=== PATIENT | male | born 2000 ===

== ENCOUNTER 2023-08-19 09:58 | Outpatient (AMB) | payer BC, SELFPAY ==
--- NOTE | 2023-08-19 09:58 | MHC.OFFVIS ---
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 Pt reports forgetting, struggling remember things, difficulty retaining new information, or processing the information. And his memory has has been gradually worsened. Mother states that patient had learning difficulties during his younger years. He had difficulty in Arabic and math, but not diagnosed with dyslexia. He was diagnosed with ADD and he was evaluated by fireworks display specialist and was verbally diagnosed with high-functioning autism. 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 He has difficulty concentrating and remembering the task. He can't remember what his father asked him to do in 20 sec. He states that he tried several medications for ADD, can't remember what he tried, but they had side effect; can't control himself and severe dry mouth. He is not on any medication for ADD now. Pt also reports hx of multiple concussion. He had one concussion in his middle school, he was playing soccer, and had 2 more concussions when he was in high school. Pt reports headache, frontal pounding headache. It usually mild to moderate and managed well with caffeine, but it can be very intense occasionally. Pt has insomnia, difficulty falling asleep and staying sleep. He takes trazodone 50 mg, his usual sleep hours 5 hrs, but wakes up frequently in the middle of the night. He goes to bed 11 pm, listening soft music also to promote sleep. His work hours vary, but mostly 8 am-5 pm. His father has sleep apnea. He may snores, not sure. He has non refreshing sleep and feels always tired. PFSH Family History (Updated 08/19/23 @ 10:11 by Jo Guzmán CMA) Father Migraines HTN (hypertension) Mother Migraines Rheumatoid arthritis Sister Acid reflux Social History (Updated 08/19/23 @ 10:12 by Jo Guzmán CMA) Household Members: Other Household Members Other:: Grandmother Housing: House Alcohol intake: current Comment: rarely Patient Tobacco Use Status: Never used Tobacco Review of Systems Const All systems reviewed & are unremarkable except as noted in HPI and below ENT Reports Normal hearing present Neuro Reports Normal hearing present Physical Exam Vital Signs: Last Vital Signs Pulse 76 08/19/23 10:03 Resp 16 08/19/23 10:03 BP 132/72 08/19/23 10:03 Pulse Ox 99 08/19/23 10:03 Oxygen Delivery Method Room Air 08/19/23 10:03 BMI result Body Mass Index 27.7 Const General: comfortable Nutritional Appearance: overweight Orientation/consciousness: patient oriented x3 HEENT Head: Yes normocephalic Neck Neck: Yes full ROM and Yes supple Resp Effort & Inspection: normal respiratory effort and able to speak in complete sentences Neuro General: patient oriented x3, gait normal and moves all extremities Cranial nerves: Yes Bilaterally intact EOM present, Yes Normal facial strength present, Yes Midline tongue present, Yes Symmetric palate elevation present, Yes Normal hearing present, Yes Ability to bilaterally rotate head present and Yes Ability to bilaterally elevate shoulders present Cognition (Neuro): normal cognition Gait exam (Neuro): Normal gait present Motor exam (neuro): 5/5 motor strength present throughout, Pronator motor function not present and no tremor noted Coordination: [id number] test normal and [id number] test normal Psych Appearance: grossly normal Mental Status: mental status grossly normal Speech and movement: Normal speech and movement present and Clear speech present Affect: normal affect Attitude: cooperative Orientation What is the (year) (season) (date) (day) (month)?: year, season, date, day and month Where are we (state) (county) (town or city) (hospital) (floor)?: state, county, town or city, hospital/clinic and floor Registration Name of 3 unrelated objects clearly and slowly, then ask patient to repeat all 3 of them. (1st repeat determines score. Make sure they can repeat all three): object 1, object 2 and object 3 Attention & Calculation (CHOOSE ONE) Ask pt to begin with 100 & count backward by 7. Stop after 5 repeats. If pt cannot ask them to spell the word WORLD backward.: 93, 86, 79, 72 and 65 Spell WORLD backwards (DLROW): 5 letters Recall Ask patient to repeat the 3 items from question #3.: object 1, object 2 and object 3 Language Show patient a wristwatch & ask what it is. Repeat for pencil.: watch and pencil Ask the patient to repeat the phrase 'No ifs, ands, or buts' after you.: correct Ask the patient to 'take a piece of paper with their right hand' 'fold paper in half' 'place paper on floor': take paper in right hand, fold paper in half and place paper on floor Print the sentence 'CLOSE YOUR EYES' on a piece. If patient actually closes eyes then score.: followed written direction Give patient a blank piece of paper & ask to write a sentence. Score if it contains a noun & verb.: sentence contains subject and verb Ask patient to copy figure of intersecting pentagons exactly. Score if all 10 angles & 2 intersects are included.: all 10 angles present & 2 are intersected Score Score: 35 Assessment & Plan Assessment & Plan (1) Headache: Code(s): R51.9 - Headache, unspecified (2) Difficulty sleeping: Code(s): G47.9 - Sleep disorder, unspecified (3) Daytime sleepiness: Code(s): R40.0 - Somnolence (4) Snoring: Code(s): R06.83 - Snoring (5) Memory deficit: Code(s): R41.3 - Other amnesia Plan Pt's memory deficit is more likely learning deficit not neurological problem. Advised patient to undergo brain MRI to assess headache and multiple concussion. Advised patient to undergo home sleep study to assess sleep apnea. Will f/u with patient after the sleep study for appropriate treatment options. Orders: Orders RT home sleep study 08/19/23 G47.9 - Sleep disorder, unspecified, R06.83 - Snoring, R40.0 - Somnolence, R41.3 - Other amnesia, R51.9 - Headache, unspecified MR head/brain wo con 08/19/23 R41.3 - Other amnesia, R51.9 - Headache, unspecified, Z87.820 - Personal history of traumatic brain injury Coding Level of Care Code New Pt Level 4 (23911) Diagnoses Headache R51.9 Difficulty sleeping G47.9 Daytime sleepiness R40.0 Snoring R06.83 Memory deficit R41.3
[2023-08-19 10:03] VITALS: BP 132/72; PULSE 76; RESP 16; O2SAT 99; BMI 27.7
== END 2023-08-19 11:13 | disposition home or self-care (01) ==
PROVIDERS: PCP Pediatrics; Visit Provider Nurse Practitioner Family
DX: R51.9 Headache, unspecified (principal); G47.9 Sleep disorder, unspecified; R40.0 Somnolence; R06.83 Snoring; R41.3 Other amnesia
CPT/HCPCS: 99204

== ENCOUNTER → 2023-08-19 09:58 | Outpatient (BNVA) | payer BC, SELFPAY | PROVIDERS: PCP Pediatrics; Visit Provider Nurse Practitioner Family ==

== ENCOUNTER → 2023-10-06 13:52 | Outpatient (REF) | payer BC, SELFPAY | LOC: HO.SL 13:52 | PROVIDERS: PCP Hospitalist; Visit Provider Nurse Practitioner Family | DX: G47.9 Sleep disorder, unspecified (principal); R06.83 Snoring; R40.0 Somnolence; R41.3 Other amnesia | CPT/HCPCS: 95806 ==

== ENCOUNTER → 2023-10-06 14:10 | Outpatient (BNV) | payer BC, SELFPAY | PROVIDERS: PCP Hospitalist; Visit Provider Psychiatry & Neurology Neurology | DX: R06.83 Snoring (principal) | CPT/HCPCS: 95806 ==

== ENCOUNTER 2023-10-13 08:47 | Outpatient (REF) | payer BC, SELFPAY ==
--- NOTE | ~2023-10-13 | MR_ITS ---
EXAMINATION: MR BRAIN WITHOUT CONTRAST CLINICAL INFORMATION: Memory issues. History of concussions at a younger age. Headaches. COMPARISON: None. TECHNIQUE: Multiplanar, multisequence imaging of the brain was performed without contrast. FINDINGS: No diffusion abnormalities are identified to suggest an acute or subacute infarct. The ventricles are normal in size. No mass effect or midline shift is seen. No brain parenchymal signal abnormality is noted. No extra-axial fluid collections are seen. The brainstem and cerebellum are normal. The gradient refocused acquisition demonstrates no pathologic magnetic susceptibility artifact to indicate underlying acute or chronic blood products. The craniovertebral junction, marrow signal, and midline structures are normal. The major intracranial flow voids at the level of the jena of Yi are preserved. The dural venous sinus flow voids are maintained. The mastoid air cells and paranasal sinuses are well aerated. MR/MR head/brain wo con IMPRESSION: No acute process. Normal MRI of the brain.
== END 2023-10-13 08:48 | disposition home or self-care (01) ==
LOC: HO.MRI 08:47
PROVIDERS: PCP Hospitalist; Visit Provider Nurse Practitioner Family
DX: R41.3 Other amnesia (principal); R51.9 Headache, unspecified; Z87.820 Personal history of traumatic brain injury
CPT/HCPCS: 70551

== ENCOUNTER 2023-12-23 08:06 | Outpatient (AMB) | payer BC, SELFPAY ==
--- NOTE | 2023-12-23 08:11 | A.OFFVIS_ITS ---
Intake Vital Signs 12/23/23 08:13 Height 5 ft 7 in Weight 175 lb 8 oz BMI 27.5 BP 115/70 Blood Pressure Location Rt brachial Pulse 78 Pulse Source Pulse Oximeter Pulse Oximetry (%) 98 Oxygen Delivery Method Room Air Intake Visit Reasons: 4 mo f/u - Memory Disturbance - LVM w/address Intake Note: Patient presents for 4 months F/U. Allergies No Known Allergies Allergy (Verified 12/23/23 08:13) HPI HPI Comments History of Present Illness Details 23 y/o male patient presents with his mo ther for follow up visit for memory problem. Pt reports forgetting, struggling remember things, difficulty retaining new information, or processing the information. Pt states that his memory is about the same since the last visit. No improvement. Pt's history- Patient had learning difficulties during his younger years. He had difficulty in Cambodian and math, but not diagnosed with dyslexia. He was diagnosed with ADD and he was evaluated by marketing graphics specialist and was verbally diagnosed with high-functioning autism. 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 He has difficulty concentrating and remembering the task. He can't remember what his father asked him to do in 20 sec. He states that he tried several medications for ADD, can't remember what he tried, but they had side effect; can't control himself and severe dry mouth. He is not on any medication for ADD now. Pt also reports hx of multiple concussion. He had one concussion in his middle school, he was playing soccer, and had 2 more concussions when he was in high school. Brain MRI report reviewed, normal brain MRI. Pt reports headache, frontal pounding headache. It usually mild to moderate and managed well with caffeine, but it can be very intense occasionally. Pt has insomnia, difficulty falling asleep and staying sleep. He takes trazodone 50 mg, his usual sleep hours 5 hrs, but wakes up frequently in the middle of the night. He goes to bed 11 pm, listening soft music also to promote sleep. His work hours vary, but mostly 8 am-5 pm. His father has sleep apnea. He may snores, not sure. He has non refreshing sleep and feels always tired. The home sleep study result was normal, but patient states that he did not sleep during the sleep study, keep waking up, mostly stay up. [facility] Family History Father Migraines HTN (hypertension) Mother Migraines Rheumatoid arthritis Sister Acid reflux Social History Household Members: Other Household Members Other:: Grandmother Housing: House Alcohol intake: current Comment: rarely Patient Tobacco Use Status: Never used Tobacco Review of Systems Const All systems reviewed & are unremarkable except as noted in HPI and below ENT Reports Normal hearing present Neuro Reports Normal hearing present Physical Exam Vital Signs: Last Vital Signs Pulse 78 12/23/23 08:13 BP 115/70 12/23/23 08:13 Pulse Ox 98 12/23/23 08:13 Oxygen Delivery Method Room Air 12/23/23 08:13 BMI result Body Mass Index 27.5 Const General: comfortable Nutritional Appearance: overweight Orientation/consciousness: patient oriented x3 HEENT Head: Yes normocephalic Neck Neck: Yes full ROM and Yes supple Resp Effort & Inspection: normal respiratory effort and able to speak in complete sentences Neuro General: patient oriented x3, gait normal and moves all extremities Cranial nerves: Yes Bilaterally intact EOM present, Yes Normal facial strength present, Yes Midline tongue present, Yes Symmetric palate elevation present, Yes Normal hearing present, Yes Ability to bilaterally rotate head present and Yes Ability to bilaterally elevate shoulders present Cognition (Neuro): normal cognition Gait exam (Neuro): Normal gait present Motor exam (neuro): 5/5 motor strength present throughout, Pronator motor function not present and no tremor noted Coordination: arejkc-im-eacc test normal and rpyz-iy-[id number] test normal Psych Appearance: grossly normal Mental Status: mental status grossly normal Speech and movement: Normal speech and movement present and Clear speech present Affect: normal affect Attitude: cooperative Assessment & Plan Assessment & Plan (1) Headache: Code(s): R51.9 - Headache, unspecified (2) Difficulty sleeping: Code(s): G47.9 - Sleep disorder, unspecified (3) Daytime sleepiness: Code(s): R40.0 - Somnolence (4) Snoring: Code(s): R06.83 - Snoring (5) Memory deficit: Code(s): R41.3 - Other amnesia Plan Pt's memory deficit is more likely learning deficit not neurological problem. Advised patient to undergo in lab sleep study to assess sleep apnea. Will f/u with patient after the sleep study for appropriate treatment options. Advised patient to try magnesium 400 mg qHS, and vitamin B2 400 mg qdaily for headache prevention. Orders: Orders RT PSG in-lab sleep study Today R06.83 - Snoring, R40.0 - Somnolence, R51.9 - Headache, unspecified Medications: New magnesium oxide 400 mg PO DAILY 30 days 30 tabs 6RF riboflavin (vitamin B2) 400 mg PO DAILY 30 days 30 tabs 6RF Coding Level of Care Code Est Pt Level 4 (98629) Diagnoses Headache R51.9 Difficulty sleeping G47.9 Daytime sleepiness R40.0 Snoring R06.83 Memory deficit R41.3
[2023-12-23 08:13] VITALS: BP 115/70; PULSE 78; O2SAT 98; BMI 27.5
== END 2023-12-23 08:27 | disposition home or self-care (01) ==
PROVIDERS: PCP Pediatrics; Visit Provider Nurse Practitioner Family
DX: R51.9 Headache, unspecified (principal); G47.9 Sleep disorder, unspecified; R40.0 Somnolence; R06.83 Snoring; R41.3 Other amnesia
CPT/HCPCS: 99214

== ENCOUNTER → 2023-12-23 08:06 | Outpatient (BNVA) | payer BC, SELFPAY | PROVIDERS: PCP Pediatrics; Visit Provider Nurse Practitioner Family ==

== ENCOUNTER → 2024-02-06 20:30 | Outpatient (REF) | payer BC, SELFPAY | LOC: HO.SL 20:30 | PROVIDERS: PCP Hospitalist; Visit Provider Nurse Practitioner Family | DX: R06.83 Snoring (principal); R40.0 Somnolence; R51.9 Headache, unspecified | CPT/HCPCS: 95810 ==

== ENCOUNTER → 2024-02-06 23:11 | Outpatient (BNV) | payer BC, SELFPAY | PROVIDERS: PCP Hospitalist; Visit Provider Psychiatry & Neurology Neurology | DX: R06.83 Snoring (principal) | CPT/HCPCS: 95810 ==

== ENCOUNTER 2024-06-23 14:21 | Outpatient (AMB) | payer BC, SELFPAY ==
[2024-06-23 14:32] VITALS: BMI 29.3
--- NOTE | 2024-06-23 14:32 | MHC.OFFVIS ---
Vital Signs 06/23/24 14:32 Height 5 ft 7 in Weight 187 lb BMI 29.3 Intake Visit Reasons: Follow up Memory Disturbance Intake Note: patient presents for follow up memory Allergies No Known Allergies Allergy (Verified 06/23/24 14:39) Medication List - Last Reconciled 06/23/24 by HALLIE Canales bupropion HCl XL 300 mg PO QAM buspirone 10 mg PO TID hydroxyzine HCl 10 mg PO TID PRN magnesium oxide 400 mg PO DAILY 30 days riboflavin (vitamin B2) 400 mg PO DAILY 30 days trazodone 25 mg PO DAILY HPI Comments Details: 23-yr-old male presents for follow-up visit of sleep difficulties and memory issues. Pt denies any significant interval medical history changes. Since the last visit, pt underwent In-lab PSG which did not show any evidence of sleep apnea or sleep diordered breathing and a small number of PLMS- however pt only slept ~ 2hrs during the study. PSG: AHI 0/hr and REM AHI n/a w/ O2 porter 94% w/ SpO2 < 88% x's 0 min, and average SpO2 97%; Periodic limb movement of sleep (PLMS) index: 6.6/hr; PLMS arousal index: 3.7/hr. Pt was offered to repeat a sleep study w/ premedication but he did not feel that would be accurate. He can still be tired. Prone to wake up 3-4 times a night- takes abouyt 10 minutes to fall back to sleep. His legs can feel restless at night. He is prone to tapping. Pt states his Trazodone was increased but he cannot take it as it makes him too sleepy during the day. He is not sure if he has a h/o anemia- but does have a h/o malnutrition as a child as he was not eating. [facility] Family History Father Migraines HTN (hypertension) Mother Migraines Rheumatoid arthritis Sister Acid reflux Social History Household Members: Other Household Members Other:: Grandmother Housing: House Alcohol intake: current Comment: rarely Patient Tobacco Use Status: Never used Tobacco Physical Exam Vital Signs: BMI result Body Mass Index 29.3 Const General: no acute distress Orientation/consciousness: patient oriented x3 HEENT Other: Mallampati stage Resp Effort & Inspection: normal respiratory effort and able to speak in complete sentences Neuro General: patient oriented x3 Psych Mental Status: mental status grossly normal Speech and movement: Clear speech present Attitude: cooperative Assessment & Plan Assessment & Plan (1) Daytime sleepiness: Code(s): R40.0 - Somnolence Category: Medical (2) Periodic limb movements of sleep: Code(s): G47.61 - Periodic limb movement disorder Category: Medical (3) Memory deficit: Code(s): R41.3 - Other amnesia Category: Medical (4) Headache: Code(s): R51.9 - Headache, unspecified Category: Medical Plan Reviewed sleep studies- results most c/w PLMS. Does sound like pt also has mild RLS s/s. Will request recent labs from PCP- if not completed, will check labs for common causes of RLS/PLMS. I would suggest holding Trazodone- may exacerbate headaches and RLS/PLMS s/s. Take Bupropion XL 1st thing in the morning. Continue Riboflavin and Magnesium for headache. Future consideration- Gabapentin. Coding Level of Care Code Est Pt Level 4 (02220) Diagnoses Daytime sleepiness R40.0 Periodic limb movements of sleep G47.61 Memory deficit R41.3 Headache R51.9
== END 2024-06-23 15:49 | disposition home or self-care (01) ==
PROVIDERS: PCP Pediatrics; Visit Provider Nurse Practitioner Family
DX: R40.0 Somnolence (principal); G47.61 Periodic limb movement disorder; R41.3 Other amnesia; R51.9 Headache, unspecified
CPT/HCPCS: 99214

== ENCOUNTER → 2024-06-23 14:21 | Outpatient (BNVA) | payer BC, SELFPAY | PROVIDERS: PCP Pediatrics; Visit Provider Nurse Practitioner Family | DX: R06.83 Snoring (principal); R40.0 Somnolence; R51.9 Headache, unspecified ==

== ENCOUNTER → 2024-10-11 20:30 | Outpatient (REF) | payer BC, SELFPAY ==
--- OUTSIDE RECORDS SUMMARY | 2024-10-11 21:27 | XMS_ITS | Patient Health Record ---
Author Organization [facility] Address [address] [place] [address] Care Team Providers Care Group Leader Wafer Polishing Name Role Phone CHRISTELLEEmma ABBEY Primary Care Provider [phone] Allergies No Known Allergies Reason For Referral Reason sleep study - Dr Christian duarte Diagnosis 1 Insomnia, unspecifie d (G47.00) Referral Organization [facility] Referring Provider First Name ABBEY Referring Provider Last Name GUL Referring Provider Speciality Internal edicine Referred Provider Specialty Sleep Medici ne General Notes Referral faxed to [facility] at F: [phone] with OV Notes and scheduling forms., Beatriz Powell 12/24/2023 04:06:12 PM > Referral Priority Routine Reason memory loss - Dr Puneet azul- Diagnosis 1 Complaints of memory disturbance (R41.3) Referral Organization [facility] Referring Provider First Name ABBEY Referring Provider Last Name CHRISTELLE Referring Provider Speciality Internal edicine Referred Provider Specialty Neurology General Notes Referral faxed to [facility] at F: [phone]. Please call patient to schedule appointment. Thank you!!!, Beatriz Powell 12/23/2023 04:24:03 PM > Referral Priority Routine Reason EL/MDD Diagnosis 1 Generalized anxiety disorder (F41.1) Diagnosis 2 Major depressive dis order, recurrent, mild (F33.0) Referral Organization [facility] Referring Provider First Name ABBEY Referring Provider Last Name GUL Referring Provider Speciality Internal edicine Referred Provider Specialty Psychiatry General Notes Referral printed out and mailed home to patient with a list of Psychiatry for patient to see which one accepts his insurance.Andre Beatriz 12/24/2023 04:23:48 PM > Referral Priority Routine Reason Evaluation and manag ement Diagnosis 1 Insomnia, unspecifie d (G47.00) Referral Organization [facility] Referring Provider First Name POTTER Referring Provider Last Name GU Referring Provider Speciality Internal edicine Referred Provider Specialty Sleep Medici ne General Notes Referral sent to [facility] Neurology - Office will call patient for scheduling.Rachel Latraya 07/20/2024 09:09:01 AM > Referral Priority Routine Reason Evaluation and manag ement - EEG Diagnosis 1 Complaints of memory disturbance (R41.3) Referral Organization [facility] Referring Provider First Name POTTER Referring Provider Last Name [facility] Referring Provider Speciality Internal edicine Referred Provider Specialty Neurology General Notes Referral sent to [facility] Neurology - Office will call patient for scheduling.Rachel Latraya 07/24/2024 10:32:56 AM > Referral Priority Routine Reason Evaluation and manag ement - sleep study Diagnosis 1 Insomnia, unspecifie d (G47.00) Referral Organization [facility] Referring Provider First Name POTTER Referring Provider Last Name GU Referring Provider Speciality Internal edicine Referred Provider Specialty Neurology General Notes Referral sent to [facility] Neurology - Office will call patient for scheduling.Rachel Latraya 07/24/2024 10:33:45 AM > Referral Priority Routine Reason Evaluation and manag ement - in lab sleep study Diagnosis 1 Complaints of memory disturbance (R41.3) Diagnosis 2 Insomnia, unspecifie d (G47.00) Referral Organization [facility] Referring Provider First Name POTTER Referring Provider Last Name GU Referring Provider Speciality Internal edicine Referred Provider Specialty Sleep Medici ne General Notes Referral sent to [facility] ([address] [place] [address], [address], [place] [address], ) - Office will call patient for scheduling.Rachel Latraya 07/28/2024 02:09:38 PM > Referral Priority Routine Reason in lab sleep study evaluate and management Diagnosis 1 Complaints of memory disturbance (R41.3) Diagnosis 2 Amnesia (R41.3) Diagnosis 3 Insomnia, unspecifie d (G47.00) Referral Organization [facility] Referring Provider First Name POTTER Referring Provider Last Name CHRISTELLEEmma Referring Provider Speciality Internal M edicine Referred Provider Specialty Neurology Referral Priority Routine Medications Medication SIG (Take, Route, Frequency, Duration) Notes Start Date End Date Status traZODone HCl 50 MG 1.5 tablet at bedtim e as needed Orally Once a day for 30 days Active buPROPion HCl ER (XL) 300 MG 1 tablet in the morning Orally Once a day for 90 days Active busPIRone HCl 10 MG 1 tablet Orally Twic e a day for 30 days Active hydrOXYzine HCl 25 MG 1 tablet Orally ev narendra 8 hrs for 30 days Active Problems Problem Type SNOMED Code ICD Code Onset Dates Problem Status W/U Status Risk Notes Problem Mild recurrent major depression (96499012) Major depressive disorder, recurrent, mild (F33.0) Active confirmed Problem Generalized anxiety disorder (55946692) Generalized anxiety disorder (F41.1) Active confirmed Problem Insomnia (103319921) Insomnia, unspecified (G47.00) Active confirmed Problem Amnesia (03178823) Complaints of memory disturbance (R41.3) Active confirmed Problem Amnesia (64392588) Amnesia (R41.3) Active confirmed Vital Signs Heart Rate 61 /min 07/19/2024 Temperature 96.1 degrees Fahrenheit 07/19/2024 Oximetry 98 % 07/19/2024 Blood pressure diastolic 88 mm Hg 07/19/2024 Height 5'7'' in 12/21/2023 Blood pressure systolic 128 mm Hg 07/19/2024 Weight 172.7 lbs 12/21/2023 BMI 27.05 kg/m2 12/21/2023 Encounters Encounter Location Date Provider Diagnosis [facility] [address] [address] 12/21/2023 ABBEY MACKENZIE Generalized anxiety disorder F41.1 ; Encounter for general adult medical examination without abnormal findings Z00.00 ; Major depressive disorder, recurrent, mild F33.0 ; Insomnia, unspecified G47.00 and Complaints of memory disturbance R41.3 [facility] [address] [address] 07/19/2024 ABBEY MACKENZIE Generalized anxiety disorder F41.1 ; Major depressive disorder, recurrent, mild F33.0 ; Insomnia, unspecified G47.00 and Complaints of memory disturbance R41.[address] [place] [address] 11/05/[address] [place] [address] 11/16/[address] [place] [address] 11/30/[address] [place] [address] 01/05/[address] [place] [address] 04/25/[address] [place] [address] 06/12/[address] [place] [address] 07/19/[address] [place] [address] 07/19/[address] [place] [address] 07/28/[address] [place] [address] 08/16/[address] [place] [address] 08/24/2024 [facility] Assessments Encounter Date Diagnosis (ICD Code) Assessment Notes Treatment Notes Treatment Clinical Notes Section Notes 07/19/2024 Generalized anxiety disorder (ICD-10 - F41.1) Mr Rodgers is a 24-year-old gentleman with insomnia, generalized anxiety disorder, major depressive disorder here for review of medications. Plan is as follows: EL/MDD. Mood is stable on current regimen. Continue Trazodone 50 MG 1-1/2 pill, bupropion ER 300 mg daily and Buspirone 10 MG BID. Insomnia. Sleep is stable on hydroxyzine 25 MG. sleep apnea/snoring. He had a sleep study done and he does not remember and he will inform us and there is no record available at this point. He needs to have in-house sleep study for further evaluation. Memory loss and forgetfulness. He recently saw a neurologist and they have ordered some testing. 1 of his physicians which he does not remember also requested EEG and we will refer him to neurology for EEG. Overweight. Advised dietary restrictions and regimental exercise. Goal is to lose 5-6 lbs a month. General health concerns discussed with patient. Scribe services used to formulate this note under HIPAA compliance and under [place] law mandated for scribe services. Patient aware of service. Verbal consent and written consent taken from the patient. Patient understands and verbalizes understanding of the scribes services and all questions answered regarding scribes services. Patient agrees to use of scribes services. 12/21/2023 Generalized anxiety disorder (ICD-10 - F41.1) Mr Rodgers is a 23-year-old gentleman with insomnia, generalized anxiety disorder, major depressive disorder here for annual physical. Plan is as follows: EL/MDD. Mood is stable on current regimen. Continue Trazodone 50 MG and Buspirone 10 MG BID. He does not see a psychiatrist. Referred to Psychiatry. Insomnia. Sleep is stable on hydroxyzine 25 MG. Referred to sleep medicine for sleep study. Memory disturbance. He was having a hard time memorizing and he usually forgets important tasks. It is very unusual for a young patient to have short-term memory loss. They can be a possibility of attention deficit disorder. He also has malocclusion and may have sleep apnea which may be attributing to his memory loss. He had a sleep study and according to the patient it was nonconclusive because he hardly slept for an hour. He is given referral for sleep study and also Referred to neurology for further evaluation. Overweight. Advised dietary restrictions and regimental exercise. Goal is to lose 5-6 lbs a month. Immunizations. Declines vaccinations. General health concerns discussed with patient. Scribe services used to formulate this note under HIPAA compliance and under [place] law mandated for scribe services. Patient aware of service. Verbal consent and written consent taken from the patient. Patient understands and verbalizes understanding of the scribes services and all questions answered regarding scribes services. Patient agrees to use of scribes services. 12/21/2023 Encounter for general adult medical examination without abnormal findings (ICD-10 - Z00.00) Mr Rodgers is a 23-year-old gentleman with insomnia, generalized anxiety disorder, major depressive disorder here for annual physical. Plan is as follows: EL/MDD. Mood is stable on current regimen. Continue Trazodone 50 MG and Buspirone 10 MG BID. He does not see a psychiatrist. Referred to Psychiatry. Insomnia. Sleep is stable on hydroxyzine 25 MG. Referred to sleep medicine for sleep study. Memory disturbance. He was having a hard time memorizing and he usually forgets important tasks. It is very unusual for a young patient to have short-term memory loss. They can be a possibility of attention deficit disorder. He also has malocclusion and may have sleep apnea which may be attributing to his memory loss. He had a sleep study and according to the patient it was nonconclusive because he hardly slept for an hour. He is given referral for sleep study and also Referred to neurology for further evaluation. Overweight. Advised dietary restrictions and regimental exercise. Goal is to lose 5-6 lbs a month. Immunizations. Declines vaccinations. General health concerns discussed with patient. Scribe services used to formulate this note under HIPAA compliance and under [place] law mandated for scribe services. Patient aware of service. Verbal consent and written consent taken from the patient. Patient understands and verbalizes understanding of the scribes services and all questions answered regarding scribes services. Patient agrees to use of scribes services. 07/19/2024 Major depressive disorder, recurrent, mild (ICD-10 - F33.0) Mr Rodgers is a 24-year-old gentleman with insomnia, generalized anxiety disorder, major depressive disorder here for review of medications. Plan is as follows: EL/MDD. Mood is stable on current regimen. Continue Trazodone 50 MG 1-1/2 pill, bupropion ER 300 mg daily and Buspirone 10 MG BID. Insomnia. Sleep is stable on hydroxyzine 25 MG. sleep apnea/snoring. He had a sleep study done and he does not remember and he will inform us and there is no record available at this point. He needs to have in-house sleep study for further evaluation. Memory loss and forgetfulness. He recently saw a neurologist and they have ordered some testing. 1 of his physicians which he does not remember also requested EEG and we will refer him to neurology for EEG. Overweight. Advised dietary restrictions and regimental exercise. Goal is to lose 5-6 lbs a month. General health concerns discussed with patient. Scribe services used to formulate this note under HIPAA compliance and under [place] law mandated for scribe services. Patient aware of service. Verbal consent and written consent taken from the patient. Patient understands and verbalizes understanding of the scribes services and all questions answered regarding scribes services. Patient agrees to use of scribes services. 12/21/2023 Major depressive disorder, recurrent, mild (ICD-10 - F33.0) Mr Rodgers is a 23-year-old gentleman with insomnia, generalized anxiety disorder, major depressive disorder here for annual physical. Plan is as follows: EL/MDD. Mood is stable on current regimen. Continue Trazodone 50 MG and Buspirone 10 MG BID. He does not see a psychiatrist. Referred to Psychiatry. Insomnia. Sleep is stable on hydroxyzine 25 MG. Referred to sleep medicine for sleep study. Memory disturbance. He was having a hard time memorizing and he usually forgets important tasks. It is very unusual for a young patient to have short-term memory loss. They can be a possibility of attention deficit disorder. He also has malocclusion and may have sleep apnea which may be attributing to his memory loss. He had a sleep study and according to the patient it was nonconclusive because he hardly slept for an hour. He is given referral for sleep study and also Referred to neurology for further evaluation. Overweight. Advised dietary restrictions and regimental exercise. Goal is to lose 5-6 lbs a month. Immunizations. Declines vaccinations. General health concerns discussed with patient. Scribe services used to formulate this note under HIPAA compliance and under [place] law mandated for scribe services. Patient aware of service. Verbal consent and written consent taken from the patient. Patient understands and verbalizes understanding of the scribes services and all questions answered regarding scribes services. Patient agrees to use of scribes services. 07/19/2024 Insomnia, unspecified (ICD-10 - G47.00) Mr Rodgers is a 24-year-old gentleman with insomnia, generalized anxiety disorder, major depressive disorder here for review of medications. Plan is as follows: EL/MDD. Mood is stable on current regimen. Continue Trazodone 50 MG 1-1/2 pill, bupropion ER 300 mg daily and Buspirone 10 MG BID. Insomnia. Sleep is stable on hydroxyzine 25 MG. sleep apnea/snoring. He had a sleep study done and he does not remember and he will inform us and there is no record available at this point. He needs to have in-house sleep study for further evaluation. Memory loss and forgetfulness. He recently saw a neurologist and they have ordered some testing. 1 of his physicians which he does not remember also requested EEG and we will refer him to neurology for EEG. Overweight. Advised dietary restrictions and regimental exercise. Goal is to lose 5-6 lbs a month. General health concerns discussed with patient. Scribe services used to formulate this note under HIPAA compliance and under [place] law mandated for scribe services. Patient aware of service. Verbal consent and written consent taken from the patient. Patient understands and verbalizes understanding of the scribes services and all questions answered regarding scribes services. Patient agrees to use of scribes services. 12/21/2023 Insomnia, unspecified (ICD-10 - G47.00) Mr Rodgers is a 23-year-old gentleman with insomnia, generalized anxiety disorder, major depressive disorder here for annual physical. Plan is as follows: EL/MDD. Mood is stable on current regimen. Continue Trazodone 50 MG and Buspirone 10 MG BID. He does not see a psychiatrist. Referred to Psychiatry. Insomnia. Sleep is stable on hydroxyzine 25 MG. Referred to sleep medicine for sleep study. Memory disturbance. He was having a hard time memorizing and he usually forgets important tasks. It is very unusual for a young patient to have short-term memory loss. They can be a possibility of attention deficit disorder. He also has malocclusion and may have sleep apnea which may be attributing to his memory loss. He had a sleep study and according to the patient it was nonconclusive because he hardly slept for an hour. He is given referral for sleep study and also Referred to neurology for further evaluation. Overweight. Advised dietary restrictions and regimental exercise. Goal is to lose 5-6 lbs a month. Immunizations. Declines vaccinations. General health concerns discussed with patient. Scribe services used to formulate this note under HIPAA compliance and under [place] law mandated for scribe services. Patient aware of service. Verbal consent and written consent taken from the patient. Patient understands and verbalizes understanding of the scribes services and all questions answered regarding scribes services. Patient agrees to use of scribes services. 12/21/2023 Complaints of memory disturbance (ICD-10 - R41.3) Mr Rodgers is a 23-year-old gentleman with insomnia, generalized anxiety disorder, major depressive disorder here for annual physical. Plan is as follows: EL/MDD. Mood is stable on current regimen. Continue Trazodone 50 MG and Buspirone 10 MG BID. He does not see a psychiatrist. Referred to Psychiatry. Insomnia. Sleep is stable on hydroxyzine 25 MG. Referred to sleep medicine for sleep study. Memory disturbance. He was having a hard time memorizing and he usually forgets important tasks. It is very unusual for a young patient to have short-term memory loss. They can be a possibility of attention deficit disorder. He also has malocclusion and may have sleep apnea which may be attributing to his memory loss. He had a sleep study and according to the patient it was nonconclusive because he hardly slept for an hour. He is given referral for sleep study and also Referred to neurology for further evaluation. Overweight. Advised dietary restrictions and regimental exercise. Goal is to lose 5-6 lbs a month. Immunizations. Declines vaccinations. General health concerns discussed with patient. Scribe services used to formulate this note under HIPAA compliance and under [place] law mandated for scribe services. Patient aware of service. Verbal consent and written consent taken from the patient. Patient understands and verbalizes understanding of the scribes services and all questions answered regarding scribes services. Patient agrees to use of scribes services. 07/19/2024 Complaints of memory disturbance (ICD-10 - R41.3) Mr Rodgers is a 24-year-old gentleman with insomnia, generalized anxiety disorder, major depressive disorder here for review of medications. Plan is as follows: EL/MDD. Mood is stable on current regimen. Continue Trazodone 50 MG 1-1/2 pill, bupropion ER 300 mg daily and Buspirone 10 MG BID. Insomnia. Sleep is stable on hydroxyzine 25 MG. sleep apnea/snoring. He had a sleep study done and he does not remember and he will inform us and there is no record available at this point. He needs to have in-house sleep study for further evaluation. Memory loss and forgetfulness. He recently saw a neurologist and they have ordered some testing. 1 of his physicians which he does not remember also requested EEG and we will refer him to neurology for EEG. Overweight. Advised dietary restrictions and regimental exercise. Goal is to lose 5-6 lbs a month. General health concerns discussed with patient. Scribe services used to formulate this note under HIPAA compliance and under [place] law mandated for scribe services. Patient aware of service. Verbal consent and written consent taken from the patient. Patient understands and verbalizes understanding of the scribes services and all questions answered regarding scribes services. Patient agrees to use of scribes services. Plan Of Treatment Pending Test Test Name Order Date Electroencephalography (EEG) 07/19/2024 Future Test Test Name Order Date 25OH VITAMIN D 08/13/2023 COMPREHENSIVE METABOLIC PANEL 08/13/2023 HOMOCYSTEINE, URINE 08/13/2023 LIPID PANEL 08/13/2023 METHYLMALONIC ACID, URINE 08/13/2023 TSH 08/13/2023 VITAMIN B12 08/13/2023 Next Appt Details Provider Name:ABBEY MACKENZIE , 10/19/2024 09:00:00 AM, [address] [place] [address], [id number], Insurance Providers Payer Name Payer Address Payer Phone Subscriber Number Group Number Insured Name Patient Relationship to Insured Coverage Start Date Coverage End Date [facility] [address] [place] [address] [id number] Garrett Rodgers Self - patient is the insured Medical (General) History Medical History History ICD Code insomnia Anxiety disorder ADHD Surgical History Surgery Date(Month/Year) fracture left leg sec to sports injury
--- OUTSIDE RECORDS SUMMARY | 2024-10-11 21:27 | XMS_ITS | Encounter Summary ---
Author Organization [facility] Address [address] [place] [address] Phone Care Team Providers Care Boiler House Supervisor Name Role Phone Андрей Vasquez MD Primary Care Provider [phone] Encounter Details Date Type Department Care Team (Late st Contact Info) Description 03/21/2012 Documentation [facility] Medicine [address] [place] [address] Family Medicine, Physician [address] [place], [place] [id number] Social History Tobacco Use Types Packs/Day Years Used Date Smoking Tobacco: Never Assessed Sex and Gender Information Value Date Recorded Sex Assigned at Male 12/27/2020 3:19 PM EDT Legal Sex Male 5:10 PM EDT Gender Identity Male 12/27/2020 3:19 PM EDT Sexual Orientation Straight 07/18/2019 2: 18 PM EST documented as of this encounter Plan of Treatment Not on file documented as of this encounter Visit Diagnoses Not on filedocumented in this encounter Care Teams Boiler House Supervisor Relationship Specialty Start Date End Date Андрей Vasquez MD [address] [place] [id number] PCP - General 04/23/17 03/04/23 documented as of this encounter
--- OUTSIDE RECORDS SUMMARY | 2024-10-11 21:27 | XMS_ITS | Encounter Summary ---
Author Organization [facility] Address [address] [place] [address] Phone Care Team Providers Care Home Economics Expert Name Role Phone Андрей Vasquez MD Primary Care Provider [phone] Encounter Details Date Type Department Care Team (Late st Contact Info) Description 07/04/2013 Documentation [facility] [address] [place] [address] Family Medicine, Physician [address] [place], [place] [phone] Social History Tobacco Use Types Packs/Day Years [...] on filedocumented in this encounter Care Teams Home Economics Expert Relationship Specialty Start Date End Date Андрей Vasquez MD [address] [place] [id number] PCP - General 04/23/17 03/04/23 documented as of this encounter
--- OUTSIDE RECORDS SUMMARY | 2024-10-11 21:28 | XMS_ITS | Encounter Summary ---
Author Organization [facility] Address [address] [place] [address] Phone Care Team Providers Care Stitch Burnisher Name Role Phone Андрей Vasquez MD Primary Care Provider Encounter Details Date Type Department Care Team (Late st Contact Info) Description 10/16/2016 Documentation [facility] Family Medicine [address] [place] [address] Family Medicine, Physician [address] [place], [place] [id number] Social History Tobacco Use Types Packs/Day Years Used Date Smoking Tobacco: Never Comments:Never smoker Sex and Gender Information Value Date Recorded Sex Assigned at Male 12/27/2020 3:19 PM EDT Legal Sex Male 5:10 PM EDT Gender Identity Male 12/27/2020 3:19 PM EDT Sexual Orientation Straight 07/18/2019 2: 18 PM EST documented as of this encounter Plan of Treatment Not on file documented as of this encounter Visit Diagnoses Not on filedocumented in this encounter Care Teams Stitch Burnisher Relationship Specialty Start Date End Date Андрей Vasquez MD [address] [place] [address] [place] [address] PCP - General 04/23/17 03/04/23 documented as of this encounter
--- OUTSIDE RECORDS SUMMARY | 2024-10-11 21:28 | XMS_ITS ---
Author Organization [facility] Address [address] [place] [address] [address] [place] [address] Care Team Providers Care Nailer Operator Name Role Phone AVRIL ABBEY Primary Care Provider [phone] Reason For Referral Reason Evaluation and manag ement - in lab sleep study Diagnosis 1 Complaints of memory disturbance (R41.3) Diagnosis 2 Insomnia, unspecifie d (G47.00) Referral Organization [facility] Referring Provider First Name ABBEY Referring Provider Last Name AVRIL Referring Provider Speciality Internal M edicine Referred Provider Specialty Sleep Medici ne General Notes Referral sent to Bebeto manuel ([address] [place] [address], [address], [place] [address], ) - Office will call patient for scheduling., Saundra Ramos 07/28/2024 02:09:38 PM > Referral Priority Routine REASON FOR VISIT Sleep study referral Encounters Encounter Location Date Provider Diagnosis [address] [address] 07/28/2024 ABBEY MACKENZIE Plan Of Treatment Referrals Referral Date Details 07/28/2024 07/28/2024, Evaluati on and management - in lab sleep study Next Appt Details Provider Name:ABBEY MACKENZIE , 10/19/2024 09:00:00 AM, [address] [place] [address] [address], [place], [address], Progress Notes * Toney MOREAU:2000 (24 yo M)Acc No.[id number]:07/28/2024 Patient:?Garrett MOREAU :2000???Age:24 Y???Sex:Male Address:[address] [place] [address] Horacio RJEILEANDRA BARAJAS [address] Subjective: * Chief Complaints: * ???Sleep study referral * Medical History:? * Surgical History:? * Hospitalization/Major Diagno stic Procedure:? * Medications:? Objective: * Vitals:? * Physical Examination:? Assessment: Plan: * Treatment: * Procedure Codes:? * true * Date:? Generated for Grace malcolm/Carroll/eTransmitting on:?10/11/2024 09:27 PM EST Consultation Request Notes Referral Date Referring Provider Referred Provider Not melissa 07/28/2024 ABBEY MACKENZIE , Evaluation and management - in lab sleep study
--- OUTSIDE RECORDS SUMMARY | 2024-10-11 21:28 | XMS_ITS | Clinical Summary ---
Author Organization [facility] Address [address] [place] [address] Phone Care Team Providers Care Waxer Operator Name Role Phone Unavailable Primary Care Provider Unavailabl e Allergies No known active allergies Medications Spacer/Aero-Holdi ng Chambers (OPTICHAMBER NORMA) misc OPTICHAMBER NORMA; inhale by Inhalation route use c MDI as directed.; 09/21/2016; Active 7 Active Multiple Vitamin (MULTI VITAMIN DAILY PO) Multi Vitamin; 03/17/2016; Active 6 Active PROAIR HFA 108 (90 Base) MCG/ACT inhalerIndication s:Mild persistent asthma without complication INHALE 2 PUFFS EVERY 4 TO 6 HOURS NEEDED 1 Units 8 Active ketoconazole 2 % shampooIndication s:Tinea versicolor APPLY TO AFFECTED AREA EVERY DAY 120 mL 3 1 Active Additional Information Patient not taking.Reported on 10/14/2021 budesonide (Pulmicort Flexhaler) 180 MCG/ACT inhalerIndication s:Mild persistent asthma without complication Inhale 2 puffs 2 (two) times a day. 1 Units 1 Active dexmethylphenidat e XR (Focalin XR) 10 MG 24 hr capsuleIndication s:Attention deficit hyperactivity disorder, predominantly inattentive type Take 1 capsule (10 mg total) by mouth every morning. 30 capsule 2 Active Active Problems Problem Noted Date Diagnosed Date Hyperventilation 05/09/2021 Overview (05/09/2021): Was dehydrated, hot, anxious. Assessment & Plan (05/09/2021 4:17 PM EDT): Fine now. Drink lots in the heat. I can show you relaxation breathing exercises which you can find on line. COVID-19 vaccine dose declined 12/27/2020 Overview (12/27/2020): Wants to look into it further, also refused Carlito Assessment & Plan (10/14/2021 9:21 AM EST): Counseled to get vaccinated to prevent serious illness or even Assessment & Plan (12/27/2020 3:41 PM EDT): I strongly urge you to get the HPV and the Meningitis B vaccine, and the Covid vaccine. Patellar tendonitis of both knees 12/27/2020 Overview (12/27/2020): Or runner's knee, off and on, not bothering him now Assessment & Plan (05/09/2021 4:13 PM EDT): Better now, not doing sports. Assessment & Plan (12/27/2020 3:54 PM EDT): You should not need to wear knee braces. If patellar tendons begin bothering you again, let me know; you should have physical therapy. Benign mole 12/27/2020 Overview (12/27/2020): Raised more of a skin tag, flesh colored with dark brown tip, quite benign looking. Is 3 x 6mm left lower back Assessment & Plan (12/27/2020 3:56 PM EDT): Photo taken, recheck in three months with ADD/asthma check Dandruff 07/18/2019 Overview (07/18/2019): Uses ketoconazole Assessment & Plan (05/09/2021 4:15 PM EDT): Better with ketoconazole every other day. Assessment & Plan (12/27/2020 3:40 PM EDT): Continue use of shampoo. Mild persistent asthma without complication 05/14 Overview (10/14/2021): Was not using/needing controller for A year but having trouble with hot/humid weather. 10/04 not needing albuterol at all now, is playing soccer Assessment & Plan (10/14/2021 9:24 AM EST): Continue the same plan Assessment & Plan (05/09/2021 4:13 PM EDT): Make sure to remember to use your QVAR daily! It is VERY IMPORTANT for you to get the Covid Vaccine.to protect yourself. It protects you in 88% of exposures from getting the new variant; if you do get it, you get a much milder case. Assessment & Plan (03/28/2021 4:44 PM EDT): See asthma plan. Restart a controller: Will start QVAR. Assessment & Plan (12/27/2020 3:39 PM EDT): Use albuterol if needed, if needed more than 4 x in a month, then restart controller. Assessment & Plan (07/19/2019 8:35 AM EST): Doing well, on advair and symbicort, not needing albuterol Assessment & Plan (05/04/2019 9:03 AM EDT): Doing well, does take albuterol before sports, but says is out of shape Assessment & Plan (06/10/2017 10:56 AM EDT): Should not need albuterol at EVERY practice and game, and should not get winded so easily in hot weather, despite normal spirometry. Will start another controller, singulair, keep track of symptoms. Let me know, follow up with ADD Follow up. Attention deficit hyperactivity disorder, predominantly inattentive type Doing well. 1.Eat healthy foods, do not skip meals, avoid too much sugar and ALL ARTIFICIAL FOOD COLORINGS. 2. Get enough sleep, every night. 3. Get at least an hour of fresh air and exercise a day. 4. No more than 2 hours of screen time a day. 5. Maintain a structured schedule every day, with a quiet place to do homework. 6. Create a to do list to keep track of homework. 7. Take medication as ordered. 8. Complete teacher's and parent's Vanderbilts if not done in the last 6 months. 9. Read Addressing ADD Naturally if not read already. 10. Address any learning issues and any emotional problems. 1. Need for vaccination MenACWY-D--Menactra Meningococcal conjugate vaccine IM, IIV4 Preservative Free Quadrivalent Flu Vaccine 0.5ml 2. ADHD (attention deficit hyperactivity disorder) evaluation 3. Foot pain, right X-Ray, foot, right; complete, minimum of three views 4. Encounter for routine child health examination without abnormal findings 5. Encounter for screening for other disorder Brief Behavioral Assessment - Normal (PSC,PHQ9,[place],etc) 6. 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 Assessment & Plan (10/14/2021 9:25 AM EST): Because of side effects, on the dose he was on for years. Will give half the dose. Avoid artificial food colorings, get enough sleep, keep things organized, fish oil may help. Assessment & Plan (05/09/2021 4:14 PM EDT): Take your focalin since you have begun classes. I encourage you to pursue your college education. Assessment & Plan (03/28/2021 4:46 PM EDT): Has not been taking focalin, should restart with school Assessment & Plan (12/27/2020 3:39 PM EDT): Doing well with meds as needed for study. Avoid artificial food colorings. Assessment & Plan (07/19/2019 8:35 AM EST): No problems with attention nor focus, has a good plan for the future, following his own course! Assessment & Plan (05/04/2019 9:03 AM EDT): Doing well. 1.Eat healthy foods, do not skip meals, avoid too much sugar and ALL ARTIFICIAL FOOD COLORINGS. 2. Get enough sleep, every night. 3. Get at least an hour of fresh air and exercise a day. 4. No more than 2 hours of screen time a day. 5. Maintain a structured schedule every day, with a quiet place to do homework. 6. Create a to do list to keep track of homework. 7. Take medication as ordered. 8. Do the adult ADHD questionnaire. . 9. Read Addressing ADD Naturally if not read already. 10. Address any learning issues and any emotional problems. Assessment & Plan (12/02/2018 3:19 PM EDT): Doing very well now, continues on focalin xr 1.Eat healthy foods, do not skip meals, avoid too much sugar and ALL ARTIFICIAL FOOD COLORINGS. 2. Get enough sleep, every night. 3. Get at least an hour of fresh air and exercise a day. 4. No more than 2 hours of screen time a day. 5. Maintain a structured schedule every day, with a quiet place to do homework. 6. Create a to do list to keep track of homework. 7. Take medication as ordered. 8. Complete teacher's and parent's Vanderbilts if not done in the last 6 months. 9. Read Addressing ADD Naturally if not read already. 10. Address any learning issues and any emotional problems. Assessment & Plan (10/07/2017 4:48 PM EST): Doing very well, keep up the good. 1.Eat healthy foods, do not skip meals, avoid too much sugar and ALL ARTIFICIAL FOOD COLORINGS. 2. Get enough sleep, every night. 3. Get at least an hour of fresh air and exercise a day. 4. No more than 2 hours of screen time a day. 5. Maintain a structured schedule every day, with a quiet place to do homework. 6. Create a to do list to keep track of homework. 7. Take medication as ordered. 8. Complete teacher's and parent's Vanderbilts if not done in the last 6 months. 9. Read Addressing ADD Naturally if not read already. 10. Address any learning issues and any emotional problems. Assessment & Plan (06/10/2017 10:54 AM EDT): Doing well. 1.Eat healthy foods, do not skip meals, avoid too much sugar and ALL ARTIFICIAL FOOD COLORINGS. 2. Get enough sleep, every night. 3. Get at least an hour of fresh air and exercise a day. 4. No more than 2 hours of screen time a day. 5. Maintain a structured schedule every day, with a quiet place to do homework. 6. Create a to do list to keep track of homework. 7. Take medication as ordered. 8. Complete teacher's and parent's Vanderbilts if not done in the last 6 months. 9. Read Addressing ADD Naturally if not read already. 10. Address any learning issues and any emotional problems. Resolved Problems Problem Noted Date Diagnosed Date Resolved Date Ankle injury, right, subsequent encounter 08/03/2017 07/14/2018 Assessment & Plan (08/03/2017 3:40 PM EST): Should be healing by now, ?why not. See referral and will recheck xray Learning disability 11/05/2009 12/28/19 21 Overview (05/04/2019): Used to struggle in Portuguese Assessment & Plan (07/18/2019 2:30 PM EST): Now Portuguese is his best subject, is studying Cameroonian Assessment & Plan (05/04/2019 9:04 AM EDT): Had a 504 in high school, will have one in [facility] for extra time on tests Assessment & Plan (12/02/2018 3:18 PM EDT): Has a 504, does well, takes Honors Portuguese, learning Cameroonian Immunizations Name Administration Dates Next Due DTaP 5 12/16/2004, 2,01/05/2001,11/09,2000 H1N1 10/09/2009,08/27/2009 Hep A, ped/adol 12/30/2015,03/14/2015 Hep B, ped/adol 2001,03/31/2001,01/05/2001 Hib (PRP-T) 10/06/2001, 1,2000,08/30 IPV 12/16/2004, 2,2000,08/30 Influenza Split 09/22/2012,07/31/2011,07/15/2010 Influenza, injectable, quadr ivalent, preservative free 07/18/2019,07/14/2018,06/10/2017,08/13,05/26/2014,08/09/2013 Influenza, injectable, trivalent 08/27/2009 MMR 12/16/2004,10/06/2001 Meningococcal Conj (Menactra) MCV4P 06/10/2017,0 12/19/2012 Pneumococcal Conjugate 01/05/2001,2000, Tdap 12/19/2012 Varicella 04/16/2008,10/06/2001 Family History Medical History Relation Name Comments No Known Problems Father Kurt Heart disease (Premature) Maternal Grandfather Hyperlipidemia Maternal Grandfather Rheum arthritis Mother Rena Heart disease (Premature) Paternal Grandfather Hyperlipidemia Paternal Grandfather Allergic rhinitis Sister Hope Relation Name Status Comments Father Kurt Alive Father: Alive a nd well Maternal Grandfather Materna l grandfather: Cancer, prostate Maternal Grandmother Materna l grandmother: Hyperlipidemia, Diabetes mellitus, *Heart Disease Mother Rena Alive Mother: Alive a nd well, Rheumatoid arthritis, Asthma Other Family history of Asthma, Family history of Migraines, Family history of ADD/ADHD, Family history of Diabetes mellitus Paternal Grandfather Paterna l uncle: learning disability Paternal Grandmother Paterna l grandmother: Hyperlipidemia, Diabetes mellitus Sister Hope Alive Sister: Alive a nd well, Strabismus Social History Tobacco Use Types Packs/Day Years Used Date Smoking Tobacco: Never Smokeless Tobacco: Never Comments:Never smoker Alcohol Use Standard Drinks/Week Comments No 0 (1 standard drink = 0.6 oz pur e alcohol) Hunger/Food Answer Date Recorded In the last 12 months, did y ou or your family ever eat less than you felt you should because there wasn't enough money for food? No 12/27/2020 Stable Housing Answer Date Recorded Are you worried that in the next 2 months you may not have stable housing? No 12/27/2020 Transportation Concerns Answer Date Rec orded In the last 12 months, have you or your family ever had to go without healthcare because you didn't have a way to get there? No 12/27/2020 Hazards in Home Answer Date Recorded Think about the place you li ve. Do you have problems with any of the following? Pests (mice or roaches), mold, no/not working smoke detectors, water leaks, no window guards. No 2020 Financing Utilities Answer Date Recorde d In the last 12 months, has t he electric, gas, oil, or water company threatened to shut off your services in your home? No 12/27/2020 Safety at Home Answer Date Recorded Are you or your family worried about feeling saf e in your home? No 12/27/2020 Outside Support Answer Date Recorded Do you feel that you need mo re support from other people or programs to help you care for yourself or your family? No 12/27/2020 Understanding Health Concerns Answer Da te Recorded Do you need help understandi ng your or your child's healthcare needs (diagnosis, medications, plan, etc.)? No 12/27/2020 Financing Health Concerns Answer Date R ecorded In the last 12 months, was t here a time when your child needed to see a doctor or get medications or supplies but could not because of cost? No 12/27/2020 Missing School or Work Answer Date Dale rded Did you or your child miss s chool or work because of a health problem that could have been avoided? No 12/27/2020 Sex and Gender Information Value Date Recorded Sex Assigned at Male 12/27/2020 3:19 PM EDT Legal Sex Male 5:10 PM EDT Gender Identity Male 12/27/2020 3:19 PM EDT Sexual Orientation Straight 07/18/2019 2: 18 PM EST Last Filed Vital Signs Vital Sign Reading Time Taken Comments Blood Pressure 118/70 10/14/2021 8:47 AM EST Pulse 64 10/14/2021 8:47 AM EST Temperature 36.4 ??C (97.6 ??F) 10/14/2021 8:47 AM ES T Respiratory Rate - - Oxygen Saturation - - Inhaled Oxygen Concentration - - Weight 74.4 kg (164 lb) 10/14/2021 8:47 AM EST Height 168.3 cm (5' 6.25 ) 05/09/2021 3:37 PM ED T Body Mass Index 26.27 05/09/2021 3:37 PM EDT Plan of Treatment Health Maintenance Due Date Last Done Comments HPV Vaccines (1 - Male 3-dose series) 2015 Consider Men B Vaccine (1 of 2 - Bexsero 2-dose series) 2016 DTaP,Tdap,and Td Vaccines (7 - Td or Tdap) 12/19/2022 12/19/2012, 12/16/2004, 01/04/2002, Additional history exists Influenza Vaccines (#1) 2024 07/18/20 19, 07/14/2018, 06/10/2017, Additional history exists COVID-19 Vaccine ( - season) 2024 Pneumococcal Vaccine Aged Out 01/05/2001, 2000, 2000 No longer eligible based on patient's age to complete this topic Hepatitis B Vaccines Completed 2001, 03/31/2001, 01/05/2001 HIB Vaccines Completed 10/06/2001, 12/13, 2000, Additional history exists IPV Vaccines Completed 12/16/2004, 09/14, 2000, Additional history exists MMR Vaccines Completed 12/16/2004, 10/06/2001 Varicella Vaccines Completed 04/16/2008, 10/06/2001 Hepatitis A Vaccines Completed 12/30/2015, 03/14/20 15 Meningococcal Vaccine Completed 06/10/2017, 013 Men B Vaccine Aged Out No longer elisteff jackson based on patient's age to complete this topic Insurance [facility] HMO [facility] NON PCC
--- OUTSIDE RECORDS SUMMARY | 2024-10-11 21:28 | XMS_ITS | Encounter Summary ---
Author Organization [facility] Address [address] [place] [address] Phone Care Team Providers Care Personalized Living Manager Name Role Phone Андрей Vasquez MD Primary Care Provider Encounter Details Date Type Department Care Team (Late st Contact Info) Description 04/29/2017 Conversion Encounter [facility] [place] [address] [place], [place] [id number] Social History Tobacco Use Types Packs/Day Years [...] on filedocumented in this encounter Care Teams Personalized Living Manager Relationship Specialty Start Date End Date Андрей Vasquez MD [address] [place] [address] PCP - General 04/23/17 03/04/23 documented as of this encounter
--- OUTSIDE RECORDS SUMMARY | 2024-10-11 21:28 | XMS_ITS ---
Author Organization [facility] Address [address] [place] [address] Care Team Providers Care Web Support Engineer Name Role Phone AVRIL ABBEY Primary Care Provider REASON FOR VISIT Bupropion refill Medications Medication SIG (Take, Route, Frequency, Duration) Notes Start Date End Date Status buPROPion HCl ER (XL) 300 MG 1 tablet in the morning Orally Once a day for 90 days Active Encounters Encounter Location Date Provider Diagnosis [facility] [address] [address] 08/16/2024 ABBEY MACKENZIE Plan Of Treatment Medication Medication Name Sig Start Date Stop Date Notes buPROPion HCl ER (XL) 300 MG 1 tablet in the morning Orally Once a day for 90 days Next Appt Details Provider Name:ABBEY MACKENZIE , 10/19/2024 09:00:00 AM, [address] [place] [address], [phone], Progress Notes * Garrett MOREAUDOB:2000 (24 yo M)Acc No.[id number]:08/16/2024 Patient:?Garrett MOREAU :2000???Age:24 Y???Sex:Male Address: [address] [facility] [place] [address] * Refills? Refill buPROPion HCl ER (XL) Tablet Extended Release 24 Hour, 300 MG, Orally, 90 Tablet, 1 tablet in the morning, Once a day, 90 days, Refills=3 * true * Date:? Generated for Grace malcolm/Carroll/Kellyitting on:?10/11/2024 09:28 PM EST
--- OUTSIDE RECORDS SUMMARY | 2024-10-11 21:28 | XMS_ITS | Encounter Summary ---
Author Organization [facility] Address [address] [place] [address] Phone Care Team Providers Care Basic Sciences Professor Name Role Phone Андрей Vasquez MD Primary Care Provider [phone] Encounter Details Date Type Department Care Team (Late st Contact Info) Description 05/10/2014 Documentation [facility] [place] [address] [place] [address] Family Medicine, Physician [address] [place], [place] [id number] Social History Tobacco Use Types Packs/Day Years [...] on filedocumented in this encounter Care Teams Basic Sciences Professor Relationship Specialty Start Date End Date Андрей Vasquez MD [address] [place] [address] PCP - General 04/23/17 03/04/23 documented as of this encounter
--- OUTSIDE RECORDS SUMMARY | 2024-10-11 21:28 | XMS_ITS ---
Author Organization [facility] Address [address] [facility] [address] [place] [address] Care Team Providers Care Dag Coater Name Role Phone ABBEY MACKENZIE Primary Care Provider [phone] REASON FOR VISIT Referral Encounters Encounter Location Date Provider Diagnosis [facility] [address] [facility] [address] [place] [address] 08/24/2024 ABBEY MACKENZIE Plan Of Treatment Next Appt Details Provider Name:ABBEY MACKENZIE , 10/19/2024 09:00:00 AM, [address] [facility] [address], [place], [address], Progress Notes * Garrett MOREAUDOB:2000 (24 yo M)Acc No.[id number]:08/24/2024 Patient:?Garrett MOREAU :2000???Age:24 Y???Sex:Male Address:[place] [address] * true * Date:? Generated for Printi yun/Carroll/eTransmitting on:?10/11/2024 09:27 PM EST
== END ==
LOC: HO.SL 20:30
PROVIDERS: PCP Pediatrics; Visit Provider Nurse Practitioner Family
DX: G47.61 Periodic limb movement disorder (principal); R06.83 Snoring; R40.0 Somnolence; G47.9 Sleep disorder, unspecified
CPT/HCPCS: 95810

== ENCOUNTER → 2024-10-11 21:57 | Outpatient (BNV) | payer BC, SELFPAY | PROVIDERS: PCP Pediatrics; Visit Provider Psychiatry & Neurology Neurology | DX: R06.83 Snoring (principal); R40.0 Somnolence | CPT/HCPCS: 95810 ==

== ENCOUNTER 2024-12-27 13:30 | Outpatient (AMB) | payer BC, SELFPAY ==
[2024-12-27 13:35] VITALS: BP 120/94; PULSE 83; O2SAT 98; BMI 30.1
--- NOTE | 2024-12-27 13:35 | MHC.OFFVIS ---
Vital Signs 12/27/24 13:35 Height 5 ft 7 in Weight 192 lb BMI 30.1 BP 120/94 H Blood Pressure Location Lt brachial Position Sitting Pulse 83 Pulse Source Pulse Oximeter Pulse Oximetry (%) 98 Oxygen Delivery Method Room Air Intake Visit Reasons: 6 mo follow up Intake Note: Patient presents 6 month follow up sleep difficulties. Box Folding Machine Operator Required: No Accompanied by: Self / Same As Patient Allergies No Known Allergies Allergy (Verified 06/23/24 14:39) Medication List - Last Reconciled 12/27/24 by HALLIE Canales bupropion HCl XL 300 mg PO QAM buspirone 10 mg PO TID hydroxyzine HCl 10 mg PO TID PRN magnesium oxide 400 mg PO DAILY 30 days riboflavin (vitamin B2) 400 mg PO DAILY 30 days trazodone 25 mg PO DAILY HPI Comments Details: 23-yr-old male presents for follow-up visit of sleep difficulties and memory issues. Pt denies any significant interval medical history changes. Interval 10/11/2024 In-lab PSG results did not show any evidence for obstructive sleep apnea, sleep disordered breathing. There were some periodic limb movement of sleep, however few were associated with arousals thus their clinical significance is uncertain.. 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 He is now taking Bupropion in the am. He was advised to stop trazodone as it would help him fall asleep at night but then would be late fore work as he could not wake up in the am. Recently started mirtazapine 7.5mg qhs. Goes to bed at 9-9:30pm, then shuts off his phone/TV, may read book (an actual book) until about 10:30pm. He is supposed to be up at 8am, but needs multiple alarms to wake up in the am. States he is in a zombie state for the 1st 3 hours of the day. Takes coffee in the am- twice a week. May use marijuana socially every 3 months. Otherwise denies use of illicit substances. Using blue-light filters on every device throughout. He notes his grandmother, who he lives with, keeps the house at 85 degrees all day and night long. Starting going back to the gym about 1-2 months- cardio and leg/core strength training. Denies any episodes of weakness a/w strong emotion. His sleep issues started around 8-9th grade. 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 He may now- doze off in the evening when watching TV- for 30-120 minutes. He states he has had 2 dream episodes in the past year- believes both were during a daytime nap. His father sometimes struggles with sleep- but not to the degree that the patient does. He is having 2-3 migraine days per week- typically more mild to moderate, but can be more severe. Migraine community associated with photophobia and phonophobia. His father and sister have migraine 06/23/24, previous HPI: Since the last visit, pt underwent In-lab PSG which did not show any evidence of sleep apnea or sleep disordered breathing and a small number of PLMS- however pt only slept ~ 2hrs during the study. PSG: AHI 0/hr and REM AHI n/a w/ O2 porter 94% w/ SpO2 < 88% x's 0 min, and average SpO2 97%; Periodic limb movement of sleep (PLMS) index: 6.6/hr; PLMS arousal index: 3.7/hr. Pt was offered to repeat a sleep study w/ premedication but he did not feel that would be accurate. He can still be tired. Prone to wake up 3-4 times a night- takes abouyt 10 minutes to fall back to sleep. His legs can feel restless at night. He is prone to tapping. Pt states his Trazodone was increased but he cannot take it as it makes him too sleepy during the day. He is not sure if he has a h/o anemia- but does have a h/o malnutrition as a child as he was not eating. PFSH Family History Father Migraines HTN (hypertension) Mother Migraines Rheumatoid arthritis Sister Acid reflux Social History Household Members: Other Household Members Other:: Grandmother Housing: House Alcohol intake: current Comment: rarely Patient Tobacco Use Status: Never used Tobacco Physical Exam Vital Signs: Last Vital Signs Pulse 83 12/27/24 13:35 BP 120/94 H 12/27/24 13:35 Pulse Ox 98 12/27/24 13:35 Oxygen Delivery Method Room Air 12/27/24 13:35 BMI result Body Mass Index 30.1 Const General: no acute distress Orientation/consciousness: patient oriented x3 Resp Effort & Inspection: normal respiratory effort and able to speak in complete sentences Neuro General: patient oriented x3 Psych Mental Status: mental status grossly normal Speech and movement: Clear speech present Attitude: cooperative Assessment & Plan Assessment & Plan (1) Difficulty sleeping: Comment: Differential diagnosis includes idiopathic hypersomnia, narcolepsy type 2, delayed phase circadian rhythm disorder Code(s): G47.9 - Sleep disorder, unspecified Category: Medical (2) Daytime sleepiness: Code(s): R40.0 - Somnolence Category: Medical (3) Snoring: Code(s): R06.83 - Snoring Category: Medical (4) Hypersomnia, unspecified: Code(s): G47.10 - Hypersomnia, unspecified Category: Medical (5) Periodic limb movements of sleep: Code(s): G47.61 - Periodic limb movement disorder Category: Medical (6) Memory deficit: Code(s): R41.3 - Other amnesia Category: Medical (7) Headache: Code(s): R51.9 - Headache, unspecified Category: Medical Plan Reviewed In-lab PSG- no evidence for sleep apnea or sleep disordered breathing. Mild periodic limb movements of sleep, of uncertain clinical significance. Check labs for common etiologies of RLS/Periodic limb movement of sleep (PLMS) and fatigue. Patient has stopped trazodone. He is now taking bupropion in the morning. Discussed strategies to reduce sleeping temperature, as his grandmother tends to keep the heat elevated at night. As patient continues to have significant sleep difficulties, notable sleep inertia, possibly episodes of daytime REM sleep during naps, Patient is advised to undergo in-lab PSG with MSLT- patient advised to stop bupropion, buspirone, hydroxyzine 3 weeks prior to MSLT. Patient states he has stopped these before without difficulty-and does not believe he will need to wean off of them. Patient advised that we will conduct a urine drug screen on the day of the study to assess for secondary etiologies of hypersomnia. For migraine headache: Continue Riboflavin and Magnesium for headache. Trial Sumatriptan 100mg tab, 1/2 - 1 tab (50-100mg) at onset of headache, may repeat in 2 hours. Max of 2 tabs (200mg) per 24 hours. May take sumatriptan with OTC Tylenol 650-1,000mg every 4-6 hours, Ibuprofen (liquid gels) 600mg every 6 hours, or Naproxen (liquid gels) 440mg q 12 hrs prn. Potential adverse effects of triptans, include but are not limited to nausea, fatigue, chest tightness/tingling (usually passes within a few minutes), medication overuse headaches. Will follow-up upon review of above and patient to follow-up in clinic in 6 months or sooner prn. Orders: Orders RT PSG in-lab sleep study Today G47.10 - Hypersomnia, unspecified, G47.9 - Sleep disorder, unspecified, R06.83 - Snoring, R40.0 - Somnolence Drug Screen Urine Today G47.10 - Hypersomnia, unspecified, G47.9 - Sleep disorder, unspecified, R06.83 - Snoring, R40.0 - Somnolence Complete Blood Count Auto Diff Today G47.10 - Hypersomnia, unspecified, R41.3 - Other amnesia, R51.9 - Headache, unspecified RT sleep testing - MSLT Today G47.10 - Hypersomnia, unspecified, G47.9 - Sleep disorder, unspecified, R06.83 - Snoring, R40.0 - Somnolence TSH reflex Free T4 Today G47.10 - Hypersomnia, unspecified, R41.3 - Other amnesia, R51.9 - Headache, unspecified Vitamin D 25-OH (D2 and D3) Today G47.10 - Hypersomnia, unspecified, R41.3 - Other amnesia, R51.9 - Headache, unspecified Comprehensive Met. Panel Today G47.10 - Hypersomnia, unspecified, R41.3 - Other amnesia, R51.9 - Headache, unspecified Vitamin B12 and Folate Today G47.10 - Hypersomnia, unspecified, R41.3 - Other amnesia, R51.9 - Headache, unspecified Medications: New sumatriptan succinate (0.5 - 1 x 100 mg) 50 - 100 mg orally at onset of headache, may repeat in 2 hrs PRN; max 2 tabs per day or 4 tabs/week (may take with Ibuprofen) 30 days 12 tabs 6RF migraine headache Coding Level of Care Code Est Pt Level 4 (75044) Diagnoses Difficulty sleeping G47.9 Daytime sleepiness R40.0 Snoring R06.83 Hypersomnia, unspecified G47.10 Periodic limb movements of sleep G47.61 Memory deficit R41.3 Headache R51.9
--- OUTSIDE RECORDS SUMMARY | 2024-12-27 16:06 | XMS_ITS | Encounter Summary ---
Author Organization [facility] Address [address] [place] [address] Phone Care Team Providers Care Shelving Supervisor Name Role Phone Андрей Vasquez MD Primary Care Provider [phone] Encounter Details Date Type Department Care Team (Late st Contact Info) Description 03/21/2012 [place] [facility] [place] [address] [place] [address] Family Medicine, Physician [address] [place], [place] [phone] Social History Tobacco Use Types Packs/Day Years [...] on filedocumented in this encounter Care Teams Shelving Supervisor Relationship Specialty Start Date End Date Андрей Vasquez MD [address] [place] [address] PCP - General 04/23/17 03/04/23 documented as of this encounter
--- OUTSIDE RECORDS SUMMARY | 2024-12-27 16:06 | XMS_ITS ---
Author Organization [facility] Address [address] [facility] [address] [place] [address] Care Team Providers Care Committee Member Name Role Phone ABBEY MACKENZIE Primary Care Provider [phone] REASON FOR VISIT Lab Orders Encounters Encounter Location Date Provider Diagnosis [facility] [address] [facility] [address] [place] [address] 11/02/2024 ABBEY MACKENZIE Hyperlipidemia, unspecified E78.5 ; Other amnesia R41.3 and Complaints of memory disturbance R41.3 Assessments Encounter Date Diagnosis (ICD Code) Assessment Notes Treatment Notes Treatment Clinical Notes Section Notes 11/02/2024 Hyperlipidemia, unspecified (ICD-10 - E78.5) 11/02/2024 Other amnesia (ICD-10 - R41.3) 11/02/2024 Complaints of memory disturbance (ICD-10 - R41.3) Plan Of Treatment Pending Test Test Name Order Date Vitamin [id number] 11/02/2024 [id number] 11/02/2024 Vitamin D, 29-Bgahfpq-[id number] 11/02/2024 Lipid Panel-[id number] 11/02/2024 Comp. Metabolic Panel [id number] 2024 Homocysteine, Urine 11/02/2024 Next Appt Details Provider Name:Heber Mclaughlin, 0 01/31/2025 10:30:00 AM, [address] [facility] [address], [place], [address], Progress Notes * Toney MOREAU:2000 (24 yo M)Acc No.[id number]:11/02/2024 Patient:Garrett SANCHEZ :2000???Age:24 Y???Sex:Male Address:[address] [place] [address] [place] [address] Subjective: * Chief Complaints: * ???Lab Orders * Medical History:? * Surgical History:? * Hospitalization/Major Diagno stic Procedure:? * Medications:? Objective: * Vitals:? * Physical Examination:? Assessment: * Assessment: 1.?Hyperlipidemia, unspecifi ed - E78.5???2.?Other amnesia - R41.3???3.?Complaints of memory disturbance - R41.3??? Plan: * Treatment: 2.?Other amnesia?LAB: Vitamin [id number] ?LAB: [id number] ?LAB: Vitamin D, 54-Jpstyxd-[id number] ?LAB: Lipid Panel-442760 ?LAB: Comp. Metabolic Panel [id number] ?LAB: Homocysteine, Urine 3.?Complaints of memory dist urbance?LAB: Vitamin [id number] ?LAB: TSH-[id number] ?LAB: Vitamin D, 14-Egutlae-236028 ?LAB: Lipid Panel-697768 ?LAB: Comp. Metabolic Panel [id number] ?LAB: Homocysteine, Urine * Procedure Codes:? * true * Date:? Generated for Grace malcolm/Carroll/eTransmitting on:?12/27/2024 04:06 PM EDT
--- OUTSIDE RECORDS SUMMARY | 2024-12-27 16:06 | XMS_ITS | Clinical Summary ---
Author Organization [facility] Address [address] [place] [address] Phone Care Team Providers Care Pet House Sitter Name Role Phone Unavailable Primary Care Provider [...] other disorder Brief Behavioral Assessment - Normal (PSC,PHQ9,Dai,etc) 6. Attention deficit hyperactivity disorder, predominantly inattentive [...] 21 Overview (05/04/2019): Used to struggle in Russian Assessment & Plan (07/18/2019 2:30 PM EST): Now Russian is his best subject, is studying Argentine Assessment & Plan (05/04/2019 9:04 AM EDT): Had a 504 in high school, will have one in [facility] for extra time on tests Assessment & Plan (12/02/2018 3:18 PM EDT): Has a 504, does well, takes Honors Russian, learning Argentine Immunizations Immunization Administration Dates Next Due DTaP 5 12/16/2004, [...] Vaccines (1 - Male 3-dose series) 2015 DTaP,Tdap,and Td Vaccines (7 - Td or Tdap) 12/19/2022 12/19/2012, 12/16/2004, 01/04/2002, Additional history exists Influenza Vaccines (#1) 2024 07/18/20 19, 07/14/2018, 06/10/2017, Additional history exists COVID-19 Vaccine ( season) 2024 Pneumococcal Vaccine Aged Out 01/05/2001, [...] Men B Vaccine Aged Out No longer elig ible based on patient's age to complete this topic Insurance [facility] NON PCC
--- OUTSIDE RECORDS SUMMARY | 2024-12-27 16:06 | XMS_ITS | Encounter Summary ---
Author Organization [facility] Address [address] [place] [address] Phone Care Team Providers Care Stapling Machine Operator Name Role Phone Андрей Vasquez MD Primary Care Provider [phone] Encounter Details Date Type Department Care Team (Late st Contact Info) Description 10/16/2016 [place]ation [facility] [place] [address] [place] [address] Family Medicine, Physician [address] [place], [place] [phone] Social History Tobacco Use Types Packs/Day Years [...] on filedocumented in this encounter Care Teams Stapling Machine Operator Relationship Specialty Start Date End Date Андрей Vasquez MD [address] [place] [address] [place] [address] PCP - General 04/23/17 03/04/23 documented as of this encounter
--- OUTSIDE RECORDS SUMMARY | 2024-12-27 16:06 | XMS_ITS ---
Author Organization [facility] Address [address] [facility] [address] [place] [address] Care Team Providers Care Licensed Psychologist Director Name Role Phone ABBEY MACKENZIE Primary Care Provider REASON FOR VISIT Sleep Study Results Encounters Encounter Location Date Provider Diagnosis [address] [place] [address] 11/02/2024 ABBEY MACKENZIE Plan Of Treatment Next Appt Details Provider Name:Heber Mclaughlin, 0 01/31/2025 10:30:00 AM, [address] [facility] [address], [place], [address], Progress Notes * Garrett MOREAUDOB:2000 (24 yo M)Acc No.[id number]:11/02/2024 Patient:?Garrett MOREAU :2000???Age:24 Y???Sex:Male Address:[place] [address] * true * Date:? Generated for Printi ng/Carroll/eTransmitting on:?12/27/2024 04:06 PM EDT
--- OUTSIDE RECORDS SUMMARY | 2024-12-27 16:06 | XMS_ITS | Encounter Summary ---
Author Organization [facility] Address [address] [place] [address] Phone Care Team Providers Care Electric Locomotive Firer/Fireman Name Role Phone Андрей Vasquez MD Primary Care Provider [phone] Encounter Details Date Type Department Care Team (Late st Contact Info) Description 10/31/2010 Documentation [facility] [place] Family Medicine [address] [place] [address] Family Medicine, Physician [address] [place], [place] [phone] Social History Tobacco Use Types Packs/Day Years [...] on filedocumented in this encounter Care Teams Electric Locomotive Firer/Fireman Relationship Specialty Start Date End Date Андрей Vasquez MD [address] [place] [id number] PCP - General 04/23/17 03/04/23 documented as of this encounter
--- OUTSIDE RECORDS SUMMARY | 2024-12-27 16:06 | XMS_ITS | Encounter Summary ---
Author Organization [facility] Address [address] [place] [address] Phone Care Team Providers Care Stylist Assistant Name Role Phone Андрей Vasquez MD Primary Care Provider [phone] Encounter Details Date Type Department Care Team (Late st Contact Info) Description 05/10/2014 [place] [facility] [place] [address] [place] [address] Family Medicine, Physician [address] [place], [place] [phone] Social History Tobacco Use Types Packs/Day Years [...] on filedocumented in this encounter Care Teams Stylist Assistant Relationship Specialty Start Date End Date Андрей Vasquez MD [address] [place] [address] PCP - General 04/23/17 03/04/23 documented as of this encounter
--- OUTSIDE RECORDS SUMMARY | 2024-12-27 16:06 | XMS_ITS ---
Author Organization [facility] Address [address] [address] Care Team Providers [employer] Attendant Name Role Phone ABBEY MACKENZIE Primary Care Provider Allergies No Known Allergies REASON FOR VISIT 3 month f/u Medications Medication SIG (Take, Route, Frequency, Duration) Notes Start Date End Date Status Mirtazapine 15 MG 1 tablet at bedtime Orally Once a day for 30 days 11/02/2024 Active buPROPion HCl ER (XL) 300 MG 1 tablet in the morning Orally Once a day for 90 days Active hydrOXYzine HCl 25 MG 1 tablet Orally ev narendra 8 hrs for 30 days Active busPIRone HCl 10 MG 1 tablet Orally Twic e a day for 30 days Active Problems Problem Type SNOMED Code ICD Code Onset Dates Problem Status W/U Status Risk Notes Problem Obesity due to excess calories (716174172) Other obesity due to excess calories (E66.09) Active confirmed Vital Signs Temperature 97.8 degrees Fahrenheit 11/02/19 25 Oximetry 99 % 11/02/2024 Heart Rate 84 /min 11/02/2024 Blood pressure systolic 130 mm Hg 11/02/19 25 Blood pressure diastolic 84 mm Hg 025 Weight 197.0 lbs 11/02/2024 BMI 30.85 kg/m2 11/02/2024 Height 5'7'' in 11/02/2024 Encounters Encounter Location Date Provider Diagnosis [facility] [address] [facility] [address] [place] [address] 11/02/2024 ABBEY MACKENZIE Generalized anxiety disorder F41.1 ; Insomnia, unspecified G47.00 ; Major depressive disorder, recurrent, mild F33.0 ; Complaints of memory disturbance R41.3 ; Other obesity due to excess calories E66.09 and Dietary counseling and surveillance Z71.3 Assessments Encounter Date Diagnosis (ICD Code) Assessment Notes Treatment Notes Treatment Clinical Notes Section Notes 11/02/2024 Generalized anxiety disorder (ICD-10 - F41.1) Mr Moreau is a 24-year-old gentleman with insomnia, generalized anxiety disorder, major depressive disorder here for follow up. Plan is as follows: EL/MDD. Mood is stable on current regimen. D/c Trazodone. To continue Buspirone 10 MG BID and buPROPion HCl ER (XL) 300 MG Tablet OD. Insomnia. Take hydroxyzine 25 MG as needed and he can take half a tablet during the day for anxiety and 1 tablet at night for sleep. To start with Mirtazapine 15 MG Tablet 1 tablet at bedtime Orally Once a day and may slowly inc. dose to 3 pills for insomnia. Sleep apnea/snoring. He had IN LAB sleep study done and most likely EEG also by a neurologist. Records are not available at this point. Memory loss and forgetfulness. No change in memory and it is been a chronic issue. He was asked to do blood work to rule out reversible conditions and we are waiting for the results of sleep study and EEG if it was done by his neurologist. Class I obesity. He has gained weight since last visit and it is calorie weight. Advised dietary restrictions and regimental exercise. Goal is to enroll in gym next month lose 5-6 lbs a month. BW to be done for the next appt. General health concerns discussed with patient. Scribe services used to formulate this note under HIPAA compliance and under [place] law mandated for scribe services. Patient aware of service. Verbal consent and written consent taken from the patient. Patient understands and verbalizes understanding of the scribes services and all questions answered regarding scribes services. Patient agrees to use of scribes services. 11/02/2024 Insomnia, unspecified (ICD-10 - G47.00) Mr Moreau is a 24-year-old gentleman with insomnia, generalized anxiety disorder, major depressive disorder here for follow up. Plan is as follows: EL/MDD. Mood is stable on current regimen. D/c Trazodone. To continue Buspirone 10 MG BID and buPROPion HCl ER (XL) 300 MG Tablet OD. Insomnia. Take hydroxyzine 25 MG as needed and he can take half a tablet during the day for anxiety and 1 tablet at night for sleep. To start with Mirtazapine 15 MG Tablet 1 tablet at bedtime Orally Once a day and may slowly inc. dose to 3 pills for insomnia. Sleep apnea/snoring. He had IN LAB sleep study done and most likely EEG also by a neurologist. Records are not available at this point. Memory loss and forgetfulness. No change in memory and it is been a chronic issue. He was asked to do blood work to rule out reversible conditions and we are waiting for the results of sleep study and EEG if it was done by his neurologist. Class I obesity. He has gained weight since last visit and it is calorie weight. Advised dietary restrictions and regimental exercise. Goal is to enroll in gym next month lose 5-6 lbs a month. BW to be done for the next appt. General health concerns discussed with patient. Scribe services used to formulate this note under HIPAA compliance and under [place] law mandated for scribe services. Patient aware of service. Verbal consent and written consent taken from the patient. Patient understands and verbalizes understanding of the scribes services and all questions answered regarding scribes services. Patient agrees to use of scribes services. 11/02/2024 Major depressive disorder, recurrent, mild (ICD-10 - F33.0) Mr Moreau is a 24-year-old gentleman with insomnia, generalized anxiety disorder, major depressive disorder here for follow up. Plan is as follows: EL/MDD. Mood is stable on current regimen. D/c Trazodone. To continue Buspirone 10 MG BID and buPROPion HCl ER (XL) 300 MG Tablet OD. Insomnia. Take hydroxyzine 25 MG as needed and he can take half a tablet during the day for anxiety and 1 tablet at night for sleep. To start with Mirtazapine 15 MG Tablet 1 tablet at bedtime Orally Once a day and may slowly inc. dose to 3 pills for insomnia. Sleep apnea/snoring. He had IN LAB sleep study done and most likely EEG also by a neurologist. Records are not available at this point. Memory loss and forgetfulness. No change in memory and it is been a chronic issue. He was asked to do blood work to rule out reversible conditions and we are waiting for the results of sleep study and EEG if it was done by his neurologist. Class I obesity. He has gained weight since last visit and it is calorie weight. Advised dietary restrictions and regimental exercise. Goal is to enroll in gym next month lose 5-6 lbs a month. BW to be done for the next appt. General health concerns discussed with patient. Scribe services used to formulate this note under HIPAA compliance and under [place] law mandated for scribe services. Patient aware of service. Verbal consent and written consent taken from the patient. Patient understands and verbalizes understanding of the scribes services and all questions answered regarding scribes services. Patient agrees to use of scribes services. 11/02/2024 Complaints of memory disturbance (ICD-10 - R41.3) Mr Moreau is a 24-year-old gentleman with insomnia, generalized anxiety disorder, major depressive disorder here for follow up. Plan is as follows: EL/MDD. Mood is stable on current regimen. D/c Trazodone. To continue Buspirone 10 MG BID and buPROPion HCl ER (XL) 300 MG Tablet OD. Insomnia. Take hydroxyzine 25 MG as needed and he can take half a tablet during the day for anxiety and 1 tablet at night for sleep. To start with Mirtazapine 15 MG Tablet 1 tablet at bedtime Orally Once a day and may slowly inc. dose to 3 pills for insomnia. Sleep apnea/snoring. He had IN LAB sleep study done and most likely EEG also by a neurologist. Records are not available at this point. Memory loss and forgetfulness. No change in memory and it is been a chronic issue. He was asked to do blood work to rule out reversible conditions and we are waiting for the results of sleep study and EEG if it was done by his neurologist. Class I obesity. He has gained weight since last visit and it is calorie weight. Advised dietary restrictions and regimental exercise. Goal is to enroll in gym next month lose 5-6 lbs a month. BW to be done for the next appt. General health concerns discussed with patient. Scribe services used to formulate this note under HIPAA compliance and under [place] law mandated for scribe services. Patient aware of service. Verbal consent and written consent taken from the patient. Patient understands and verbalizes understanding of the scribes services and all questions answered regarding scribes services. Patient agrees to use of scribes services. 11/02/2024 Other obesity due to excess calories (ICD-10 - E66.09) Mr Moreau is a 24-year-old gentleman with insomnia, generalized anxiety disorder, major depressive disorder here for follow up. Plan is as follows: EL/MDD. Mood is stable on current regimen. D/c Trazodone. To continue Buspirone 10 MG BID and buPROPion HCl ER (XL) 300 MG Tablet OD. Insomnia. Take hydroxyzine 25 MG as needed and he can take half a tablet during the day for anxiety and 1 tablet at night for sleep. To start with Mirtazapine 15 MG Tablet 1 tablet at bedtime Orally Once a day and may slowly inc. dose to 3 pills for insomnia. Sleep apnea/snoring. He had IN LAB sleep study done and most likely EEG also by a neurologist. Records are not available at this point. Memory loss and forgetfulness. No change in memory and it is been a chronic issue. He was asked to do blood work to rule out reversible conditions and we are waiting for the results of sleep study and EEG if it was done by his neurologist. Class I obesity. He has gained weight since last visit and it is calorie weight. Advised dietary restrictions and regimental exercise. Goal is to enroll in gym next month lose 5-6 lbs a month. BW to be done for the next appt. General health concerns discussed with patient. Scribe services used to formulate this note under HIPAA compliance and under [place] law mandated for scribe services. Patient aware of service. Verbal consent and written consent taken from the patient. Patient understands and verbalizes understanding of the scribes services and all questions answered regarding scribes services. Patient agrees to use of scribes services. 11/02/2024 Dietary counseling and surveillance (ICD-10 - Z71.3) Mr Moreau is a 24-year-old gentleman with insomnia, generalized anxiety disorder, major depressive disorder here for follow up. Plan is as follows: EL/MDD. Mood is stable on current regimen. D/c Trazodone. To continue Buspirone 10 MG BID and buPROPion HCl ER (XL) 300 MG Tablet OD. Insomnia. Take hydroxyzine 25 MG as needed and he can take half a tablet during the day for anxiety and 1 tablet at night for sleep. To start with Mirtazapine 15 MG Tablet 1 tablet at bedtime Orally Once a day and may slowly inc. dose to 3 pills for insomnia. Sleep apnea/snoring. He had IN LAB sleep study done and most likely EEG also by a neurologist. Records are not available at this point. Memory loss and forgetfulness. No change in memory and it is been a chronic issue. He was asked to do blood work to rule out reversible conditions and we are waiting for the results of sleep study and EEG if it was done by his neurologist. Class I obesity. He has gained weight since last visit and it is calorie weight. Advised dietary restrictions and regimental exercise. Goal is to enroll in gym next month lose 5-6 lbs a month. BW to be done for the next appt. General health concerns discussed with patient. Scribe services used to formulate this note under HIPAA compliance and under [place] law mandated for scribe services. Patient aware of service. Verbal consent and written consent taken from the patient. Patient understands and verbalizes understanding of the scribes services and all questions answered regarding scribes services. Patient agrees to use of scribes services. Plan Of Treatment Medication Medication Name Sig Start Date Stop Date Notes Mirtazapine 15 MG 1 tablet at bedtime Orally Once a day for 30 days 11/02/2024 Next Appt Details Follow Up: 3 Months, Reason: Provider Name:Heber RandolphbernardoHernandez 01/31/2025 10:30:00 AM, [address] [place] [address], [id number], Progress Notes * Garrett MOREAUDOB:2000 (24 yo M)Acc No.[id number]:11/02/2024 Progress Notes Patient:?Garrett MOREAU Provider:?ABBEY MACKENZIE MD :2000???Age:24 Y???Sex:Male Óscar e:11/02/2024 Address:[address] [place], [place] [id number] Subjective: * Chief Complaints: * ???3 month f/u * HPI: ???Internal Medicine:?Mr Moreau is a 24-year-old gentleman with insomnia, generalized anxiety disorder, major depressive disorder here for follow up. He has ADHD when he was in Elementary school and middle school and he was on some medications in the past and he also struggled in school in [place] and mathematics. He is referred by his psychiatrist for referral to neurology because of short-term memory loss. He was recently seen by neurologist and he had a sleep study and most likely EEG study as well but records are not available at this point. He?is physically active plan he had gained weight which is calorie weight.. His weight is stable. Mood is stable on current regimen but complains of difficulty staying asleep and he wakes up a few times a day.? Currently on trazodone 100 mg with no significant response and he feels daytime grogginess at times because of fragmented sleep. He denies any suicidal or homicidal ideations. He has difficulty sleeping, appetite is good is gainfully employed. No other issues. * ROS:?General/Constitutional:?Overall health?Good.?Change in appetite?denies.?Chills?denies.?Fever?denies.?Night sweats?denies.?Sleep disturbance?denies.?Weight gain?denies.?Weight loss?denies.?Neurologic:?Difficulty speaking?denies.?Dizziness?denies.?Gait abnormality?denies.?Headache?denies.?Loss of strength?denies.?Memory loss?denies.?Seizures?denies.?Tingling/Numbness?denies .?Ophthalmologic:?Blurred vision?denies.?Discharge?denies.?Dry eye?denies.?Red eye?denies.?ENT:?Change in Voice?Denies.?Cold Symptoms?Denies.?Cough?Denies.?Dizziness?Denies.?Nasal Congestion?Denies.?Otalgia?Denies.?postnasal drip?Denies.?Blocked ear?denies.?Nosebleed?denies.?Snoring?denies.?Cardiovascular:?Diaphoresis?Denies.?Pedal Edema?Denies.?PND (Paroxsymal nocturnal dyspnea)?Denies.?Chest pain?denies.?Difficulty laying flat?denies.?Dyspnea on exertion?denies.?Heart murmur?denies.?Orthopnea?denies.?Respiratory:?Snoring?denies.?Asthma?denies.?Cough?denies.?Shortness of breath with exertion?denies.?Sputum production?denies.?Wheezing?denies.?Gastrointestinal:?Change in bowel habits?denies.?Constipation?denies.?Decreased appetite?denies.?Diarrhea?denies.?Heartburn?denies.?Nausea?denies.?Vomiting?perri es.?Musculoskeletal:?tingling/numbness?Denies.?myalgias?Denies.?Joint Swelling?Denies.?extremeties?normal.?Arthritis?denies.?Back problems?denies.?Carpal tunnel?denies.?Joint stiffness?denies.?Muscle aches?denies.?Endocrine:?Bowel Changes?Denies.?Breast Discharge?Denies.?poor libido?Denies.?Cold intolerance?denies.?Excessive sweating?denies.?Excessive thirst?denies.?Frequent urination?denies.?Thyroid problems?denies.?Skin:?Bruising?Denies.?Eczema?denies.?Hair changes?denies.?Rash?denies.?Skin lesion(s)?denies.?Psychiatric:?Anxiety?denies.?Depressed mood?denies.?Difficulty sleeping?,admits.?Nervous breakdown?denies.?Substance abuse?denies.?Urology:?abnormal menstrual bleeding?denies.?blood in urine?denies.?burning on urination?denies.?difficulty urinating?denies.?discharge?denies.?dysuria?denies.? * Medical History:? * Surgical History:?fracture l eft leg sec to sports injury * Hospitalization/Major Diagno stic Procedure:? * Family History:?Paternal Gra nd Father: diagnosed with Cancer.?Paternal Grand Mother: diagnosed with Cancer.?Maternal Grand Father: diagnosed with Cancer.? * Social History:?Tobacco Use:?Tobacco use other than smoking?do you smoke?No ???Drugs/Alcohol:?Do you drink alcohol?: no?.?Miscellaneous:?Living with: grandmother. ?Marital status: single. * Medications:?TakingMirtazapi ne 15 MG Tablet 1 tablet at bedtime Orally Once a day busPIRone HCl 10 MG Tablet 1 tablet Orally Twice a day hydrOXYzine HCl 25 MG Tablet 1 tablet Orally every 8 hrs buPROPion HCl ER (XL) 300 MG Tablet Extended Release 24 Hour 1 tablet in the morning Orally Once a day Taking Mirtazapine 15 MG Tablet 1 tablet at bedtime Orally Once a day Taking busPIRone HCl 10 MG Tablet 1 tablet Orally Twice a day Taking hydrOXYzine HCl 25 MG Tablet 1 tablet Orally every 8 hrs Taking buPROPion HCl ER (XL) 300 MG Tablet Extended Release 24 Hour 1 tablet in the morning Orally Once a day DiscontinuedtraZODone HCl 50 MG Tablet 1.5 tablet at bedtime as needed Orally Once a day Medication List reviewed and reconciled with the patientDiscontinued traZODone HCl 50 MG Tablet 1.5 tablet at bedtime as needed Orally Once a day Medication List reviewed and reconciled with the patient * Allergies:?N.K.D.A.no[Allerg ies Verified] Objective: * Vitals:?Temp:97.8F, Oxygen s at %:99%, HR:84/min, BP:130/84mm Hg, Wt:197.0lbs, BMI:30.85Index, Ht: 5'7''. * Examination: ???General Examination: ?Psychiatry?Normal.?GENERAL APPEARANCE:?Well developed, well nourished, in no acute distress.?MUSCULOSKELETAL:?Normal.?HEAD:?Normocephalic, atraumatic.?EYES:?Pupils equal, round, reactive to light and accommodation, sclera non-icteric.?EARS:?Normal.?ORAL CAVITY:?Normal.?THROAT:?Clear.?OROPHARYNX?Normal.?SINUSES?Normal.?NECK/THYROID:?Neck supple, full range of motion, no cervical lymphadenopathy.?SKIN:?Warm and dry, no suspicious lesions.?HEART:?Normal.?LUNGS:?Normal.?BREASTS:?__.?ABDOMEN:?Soft, nontender, nondistended, bowel sounds present, normal.?EXTREMITIES:?Normal.?PERIPHERAL PULSES:?Normal.?NEUROLOGIC:?Nonfocal,? appropriate?motor strength normal upper and lower extremities, sensory exam intact.?FEMALE GENITOURINARY:?__.?MALE GENITOURINARY:?__.?PODIATRIC:?Normal.?Nut Packer? .? Assessment: * Assessment: 1.?Insomnia, unspecified - G 47.00 (Primary)???2.?Generalized anxiety disorder - F41.1???3.?Major depressive disorder, recurrent, mild - F33.0???4.?Complaints of memory disturbance - R41.3???5.?Other obesity due to excess calories - E66.09???6.?Dietary counseling and surveillance - Z71.3??? Mr Moreau is a 24-year-old gen tleman with insomnia, generalized anxiety disorder, major depressive disorder here for follow up. Plan is as follows: EL/MDD. Mood is stable on current regimen. D/c Trazodone. To continue Buspirone 10 MG BID and buPROPion HCl ER (XL) 300 MG Tablet OD.? Insomnia. Take hydroxyzine 25 MG as needed and he can take half a tablet during the day for anxiety and 1 tablet at night for sleep. To start with Mirtazapine 15 MG Tablet 1 tablet at bedtime Orally Once a day and may slowly inc. dose to 3 pills? for insomnia. Sleep apnea/snoring. He had IN LAB sleep study done and most likely EEG also by a neurologist.? Records are not available at this point. Memory loss and forgetfulness.? No change in memory and it is been a chronic issue.? He was asked to do blood work to rule out reversible conditions and we are waiting for the results of sleep study and EEG if it was done by his neurologist. Class I obesity.? He has gained weight since last visit and it is calorie weight. Advised dietary restrictions and regimental exercise. Goal is to enroll in gym next month??lose 5-6 lbs a month. BW to be done for the next appt. General health concerns discussed with patient. Scribe services used to formulate this note under HIPAA compliance and under [place] law mandated for scribe services. Patient aware of service. Verbal consent and written consent taken from the patient. Patient understands and verbalizes understanding of the scribes services and all questions answered regarding scribes services. Patient agrees to use of scribes services. Plan: * Treatment: * Procedure Codes:?3079F DIAST BP 80-89 MM [id number] SYST BP GE 130 - 139MM HG * Follow Up:?3 Months * * Sign off status: Completed true * Provider:?ABBEY MACKENZIE MD Date:?11/02 Generated for Grace malcolm/Carroll/Sammie on:?12/27/2024 04:06 PM EDT History and Physical Notes * HPI (History of Present Illness) Category Sub-Category Detail Notes Category Not es Internal Medicine Mr Moreau is a 24-year-old gentleman with insomnia, generalized anxiety disorder, major depressive disorder here for follow up. He has ADHD when he was in Elementary school and middle school and he was on some medications in the past and he also struggled in school in [place] and mathematics. He is referred by his psychiatrist for referral to neurology because of short-term memory loss. He was recently seen by neurologist and he had a sleep study and most likely EEG study as well but records are not available at this point. He is physically active plan he had gained weight which is calorie weight.. His weight is stable. Mood is stable on current regimen but complains of difficulty staying asleep and he wakes up a few times a day. Currently on trazodone 100 mg with no significant response and he feels daytime grogginess at times because of fragmented sleep. He denies any suicidal or homicidal ideations. He has difficulty sleeping, appetite is good is gainfully employed. No other issues. Examination Category Sub-Category Detail Notes Category Not es General Examination GENERAL APPEARANCE: Well dev eloped, well nourished, in no acute distress HEAD: Normocephalic, atrau matic EYES: Pupils equal, round, reactive to light and accommodation, sclera non-icteric EARS: Normal THROAT: Clear NECK/THYROID: Neck supple, full ra nge of motion, no cervical lymphadenopathy HEART: Normal LUNGS: Normal ABDOMEN: Soft, nontender, non distended, bowel sounds present, normal NEUROLOGIC: Nonfocal, appropriat e motor strength normal upper and lower extremities, sensory exam intact SKIN: Warm and dry, no vamshi picious lesions EXTREMITIES: Normal PERIPHERAL PULSES: Normal BREASTS: __ MUSCULOSKELETAL: Normal MALE GENITOURINARY: __ FEMALE GENITOURINARY: __ ORAL CAVITY: Normal PODIATRIC: Normal Psychiatry Normal OROPHARYNX Normal SINUSES Normal Nut Packer
--- OUTSIDE RECORDS SUMMARY | 2024-12-27 16:06 | XMS_ITS | Patient Health Record ---
Author Organization [facility] Address [address] [place] [address] Care Team Providers Care Side Piece Coverer Name Role Phone CHRISTELLEEmma ABBEY Primary Care Provider Allergies No Known Allergies Reason For Referral Reason Evaluation and manag ement Diagnosis 1 Insomnia, unspecifie d (G47.00) Referral Organization [facility] Referring Provider First Name ABBEY Referring Provider Last Name [facility] Referring Provider Speciality Internal edicine Referred Provider Specialty Sleep Medici ne General Notes Referral sent to [facility] Neurology - Office will call patient for scheduling.Rachel Latraya 07/20/2024 09:09:01 AM > Referral Priority Routine Reason Evaluation and manag ement - EEG Diagnosis 1 Complaints of memory disturbance (R41.3) Referral Organization [facility] Referring Provider First Name ABBEY Referring Provider Last Name CHRISTELLE Referring Provider Speciality Internal edicine Referred Provider Specialty Neurology General Notes Referral sent to [facility] Neurology - Office will call patient for scheduling.Rachel Latraya 07/24/2024 10:32:56 AM > Referral Priority Routine Reason Evaluation and manag ement - sleep study Diagnosis 1 Insomnia, unspecifie d (G47.00) Referral Organization [facility] Referring Provider First Name ABBEY Referring Provider Last Name [facility] Referring Provider Speciality Internal edicine Referred Provider Specialty Neurology General Notes Referral sent to [facility] Neurology - Office will call patient for scheduling.Rachel Latraya 07/24/2024 10:33:45 AM > Referral Priority Routine Reason Evaluation and manag ement - in lab sleep study Diagnosis 1 Complaints of memory disturbance (R41.3) Diagnosis 2 Insomnia, unspecifie d (G47.00) Referral Organization [facility] Referring Provider First Name ABBEY Referring Provider Last Name CHRISTELLE Referring Provider Speciality Internal edicine Referred Provider Specialty Sleep Medici ne General Notes Referral sent to [facility] ([address] [place] [address], [address], [place] [address], ) - Office will call patient for scheduling., Saundra Ramos 07/28/2024 02:09:38 PM > Referral Priority Routine Reason in lab sleep study evaluate and management Diagnosis 1 Complaints of memory disturbance (R41.3) Diagnosis 2 Amnesia (R41.3) Diagnosis 3 Insomnia, unspecifie d (G47.00) Referral Organization [facility] Referring Provider First Name ABBEY Referring Provider Last Name AVRIL Referring Provider Speciality Internal edicine Referred Provider Specialty Neurology Referral Priority Routine Medications Medication SIG (Take, Route, Frequency, Duration) Notes Start Date End Date Status Mirtazapine 15 MG TAKE 1 TABLET BY YESI TH EVERY DAY AT BEDTIME FOR 30 DAYS for 90 Active buPROPion HCl ER (XL) 300 MG [...] Notes Problem Obesity due to excess calories (638907493) Other obesity due to excess calories (E66.09) Active confirmed Problem Hyperlipidemia (82157184) Hyperlipidemia, unspecified (E78.5) Active confirmed Problem Mild recurrent major depression (13211041) Major depressive disorder, recurrent, mild (F33.0) Active confirmed Problem Generalized anxiety disorder (99850743) Generalized anxiety disorder (F41.1) Active confirmed Problem Insomnia (488232654) Insomnia, unspecified (G47.00) Active confirmed Problem Amnesia (79083771) Other amnesia (R41.3) Active confirmed Problem Amnesia (52220946) Complaints of memory disturbance (R41.3) Active confirmed Problem Amnesia (34197783) Amnesia (R41.3) Active confi rmed Vital Signs Heart Rate 84 /min 11/02/2024 Temperature 97.8 degrees Fahrenheit 11/02/2024 Blood pressure diastolic 84 mm Hg 11/02/2024 Oximetry 99 % 11/02/2024 Height 5'7'' in 11/02/2024 Blood pressure systolic 130 mm Hg 11/02/2024 Weight 197.0 lbs 11/02/2024 BMI 30.85 kg/m2 11/02/2024 Encounters Encounter Location Date Provider Diagnosis [facility] [address] [place] [address] 07/19/2024 [facility] Generalized anxiety disorder F41.1 ; Major depressive disorder, recurrent, mild F33.0 ; Insomnia, unspecified G47.00 and Complaints of memory disturbance R41.3 [facility] [address] [place] [address] 11/02/2024 [facility] Generalized anxiety disorder F41.1 ; Insomnia, unspecified G47.00 ; Major depressive disorder, recurrent, mild F33.0 ; Complaints of memory disturbance R41.3 ; Other obesity due to excess calories E66.09 and Dietary counseling and surveillance Z71.3 [facility] [address] [place] [address] 01/05/2024 [facility] [address] [place] [address] 04/25/[address] [place] [address] 06/12/[address] [place] [address] 07/19/[address] [place] [address] 07/19/[address] [place] [address] 07/28/[address] [place] [address] 08/16/2024 [facility] [address] [place] [address] 08/24/2024 [facility] [address] [place] [address] 11/02/2024 [facility] [address] [place] [address] 11/02/2024 [facility] Hyperlipidemia, unspecified E78.5 ; Other amnesia R41.3 [...] this note under HIPAA compliance and under [place] law mandated for scribe services. Patient aware of service. Verbal consent and written consent taken from the patient. Patient understands and verbalizes understanding of the scribes services and all questions answered regarding scribes services. Patient agrees to use of scribes services. 11/02/2024 Generalized anxiety disorder (ICD-10 - F41.1) [...] this note under HIPAA compliance and under [place] law mandated for scribe services. Patient aware of service. Verbal consent and written consent taken from the patient. Patient understands and verbalizes understanding of the scribes services and all questions answered regarding scribes services. Patient agrees to use of scribes services. 11/02/2024 Insomnia, unspecified (ICD-10 - G47.00) Mr Rodgers [...] this note under HIPAA compliance and under [place] law mandated for scribe services. Patient aware of service. Verbal consent and written consent taken from the patient. Patient understands and verbalizes understanding of the scribes services and all questions answered regarding scribes services. Patient agrees to use of scribes services. 11/02/2024 Hyperlipidemia, unspecified (ICD-10 - E78.5) 11/02/2024 Other amnesia (ICD-10 - R41.3) 07/19/2024 Major depressive disorder, recurrent, mild (ICD-10 [...] this note under HIPAA compliance and under [place] law mandated for scribe services. Patient aware [...] this note under HIPAA compliance and under [place] law mandated for scribe services. Patient aware [...] this note under HIPAA compliance and under [place] law mandated for scribe services. Patient aware of service. Verbal consent and written consent taken from the patient. Patient understands and verbalizes understanding of the scribes services and all questions answered regarding scribes services. Patient agrees to use of scribes services. 11/02/2024 Complaints of memory disturbance (ICD-10 - R41.3) 11/02/2024 Complaints of memory [...] this note under HIPAA compliance and under [place] law mandated for scribe services. Patient aware [...] this note under HIPAA compliance and under [place] law mandated for scribe services. Patient aware of service. Verbal consent and written consent taken from the patient. Patient understands and verbalizes understanding of the scribes services and all questions answered regarding scribes services. Patient agrees to use of scribes services. 11/02/2024 Other obesity due to excess calories (ICD-10 - E66.09) Mr Rodegrs is a 24-year-old gentleman with insomnia, generalized [...] this note under HIPAA compliance and under [place] law mandated for scribe services. Patient aware of service. Verbal consent and written consent taken from the patient. Patient understands and verbalizes understanding of the scribes services and all questions answered regarding scribes services. Patient agrees to use of scribes services. 11/02/2024 Dietary counseling and surveillance (ICD-10 - Z71.3) Mr Rodgers is a 24-year-old gentleman with [...] this note under HIPAA compliance and under [place] law mandated for scribe services. Patient aware of service. Verbal consent and written consent taken from the patient. Patient understands and verbalizes understanding of the scribes services and all questions answered regarding scribes services. Patient agrees to use of scribes services. Plan Of Treatment Pending Test Test Name Order Date Electroencephalography (EEG) 07/19/2024 Vitamin [id number] 11/02/2024 TSH-[id number] 11/02/2024 Vitamin D, [id number] 11/02/2024 Lipid Panel-[id number] 11/02/2024 Comp. Metabolic Panel [id number] 2024 Homocysteine, Urine 11/02/2024 Future Test Test Name Order Date 25OH VITAMIN D 08/13/2023 COMPREHENSIVE METABOLIC PANEL 08/13/2023 HOMOCYSTEINE, URINE 08/13/2023 LIPID PANEL 08/13/2023 METHYLMALONIC ACID, URINE 08/13/2023 TSH 08/13/2023 VITAMIN B12 08/13/2023 Next Appt Details Provider Name:Heber Mclaughlin, Hernandez 01/31/2025 10:30:00 AM, [address] [place] [address], [phone], Insurance Providers Payer Name Payer Address Payer Phone Subscriber Number Group Number Insured Name Patient Relationship to Insured Coverage Start Date Coverage End Date [facility] [address] [place] [address] [id number] Garrett Rodgers Self - patient is the insured Medical (General) History Medical History History ICD Code insomnia Anxiety disorder see Ms Maloney ADHD Surgical History Surgery Date(Month/Year) fracture left leg sec to sports injury
--- OUTSIDE RECORDS SUMMARY | 2024-12-27 16:06 | XMS_ITS | Encounter Summary ---
Author Organization [facility] Address [address] [place] [address] Phone Care Team Providers Care Semi Conductor Assembler Name Role Phone Андрей Vasquez MD Primary Care Provider [phone] Encounter Details Date Type Department Care Team (Late st Contact Info) Description 04/29/2017 Conversion Encounter [facility] [address] [place], [place] [phone] Social History Tobacco Use Types Packs/Day Years [...] on filedocumented in this encounter Care Teams Semi Conductor Assembler Relationship Specialty Start Date End Date Андрей Vasquez MD [address] [place] [address] PCP - General 04/23/17 03/04/23 documented as of this encounter
--- OUTSIDE RECORDS SUMMARY | 2024-12-27 16:06 | XMS_ITS | Encounter Summary ---
Author Organization [facility] Address [address] [place] [address] Phone Care Team Providers Care Commission Associate Name Role Phone Андрей Vasquez MD Primary Care Provider [phone] Encounter Details Date Type Department Care Team (Late st Contact Info) Description 07/04/2013 Documentation [facility] [address] [place] [address] Family Medicine, Physician [address] [place], [place] [id number] Social History Tobacco Use Types Packs/Day Years [...] on filedocumented in this encounter Care Teams Commission Associate Relationship Specialty Start Date End Date Андрей Vasquez MD [address] [place] [address] PCP - General 04/23/17 03/04/23 documented as of this encounter
== END 2024-12-27 14:39 | disposition home or self-care (01) ==
LOC: HO.HSMS 13:30
PROVIDERS: PCP Pediatrics; Visit Provider Nurse Practitioner Family
DX: G47.9 Sleep disorder, unspecified (principal); R40.0 Somnolence; R06.83 Snoring; G47.10 Hypersomnia, unspecified; G47.61 Periodic limb movement disorder; R41.3 Other amnesia; R51.9 Headache, unspecified
CPT/HCPCS: 99214

== ENCOUNTER → 2024-12-27 13:30 | Outpatient (BNVA) | payer BC, SELFPAY | PROVIDERS: PCP Pediatrics; Visit Provider Nurse Practitioner Family | DX: Z13.89 Encounter for screening for other disorder (principal) ==

== ENCOUNTER → 2025-03-08 20:30 | Outpatient (REF) | payer BC, SELFPAY ==
--- OUTSIDE RECORDS SUMMARY | 2025-03-08 21:43 | XMS_ITS | Encounter Summary ---
Author Organization [facility] Address [address] [place] [address] Phone Care Team Providers Care Grounds Maintenance Supervisor Name Role Phone Андрей Vasquez MD Primary Care Provider Jermaine fraire Encounter Details Date Type Department Care Team (Late st Contact Info) Description 10/31/2010 Documentation [facility] [address] [place], [place] [phone] Family Medicine, Physician [address] [place] [address] Social History Tobacco Use Types Packs/Day Years [...] on filedocumented in this encounter Care Teams Grounds Maintenance Supervisor Relationship Specialty Start Date End Date Андрей Vasquez MD PCP - General 04/23/17 03/04/23 documented as of this encounter
== END ==
LOC: HO.SL 20:30
PROVIDERS: PCP Pediatrics; Visit Provider Nurse Practitioner Family
DX: G47.10 Hypersomnia, unspecified (principal); R06.83 Snoring; R40.0 Somnolence; G47.9 Sleep disorder, unspecified
CPT/HCPCS: 95810

== ENCOUNTER → 2025-03-08 21:45 | Outpatient (BNV) | payer BC, SELFPAY | PROVIDERS: PCP Pediatrics; Visit Provider Psychiatry & Neurology Neurology | DX: G47.10 Hypersomnia, unspecified (principal) | CPT/HCPCS: 95810 ==

== ENCOUNTER 2025-04-24 09:27 | Outpatient (AMB) | payer BC, SELFPAY ==
[2025-04-24 09:30] VITALS: BP 116/86; PULSE 74; O2SAT 98; BMI 29.6
--- NOTE | 2025-04-24 09:30 | A.OFFVIS_ITS ---
Vital Signs 04/24/25 09:30 Height 5 ft 7 in Weight 189 lb BMI 29.6 BP 116/86 Blood Pressure Location Rt brachial Position Sitting Pulse 74 Pulse Source Pulse Oximeter Pulse Oximetry (%) 98 Oxygen Delivery Method Room Air Intake Visit Reasons: 6 month follow up Intake Note: Patient presents follow up Sleep/Headache medication. PSG in chart. Accompanied by: Mother Allergies No Known Allergies Allergy (Verified 04/24/25 09:33) Medication List - Last Reconciled 04/24/25 by HALLIE Canales bupropion HCl XL 300 mg PO QAM buspirone 10 mg PO TID hydroxyzine HCl 10 mg PO TID PRN magnesium oxide 400 mg PO DAILY 30 days riboflavin (vitamin B2) 400 mg PO DAILY 30 days sumatriptan succinate 50 - 100 mg orally at onset of headache, may repeat in 2 hrs PRN; max 2 tabs per day or 4 tabs/week (may take with Ibuprofen) 30 days HPI Comments Details: 24-yr-old male presents for follow-up visit of sleep difficulties and memory issues. Patient is accompanied by his mother today. 03/09/2025 in-lab PSG: Markedly prolonged sleep latency (210 min) and reduced total sleep time (236 min) with poor efficiency (50.7%); REM latency 73.5 min; wake after sleep onset 20.5 min; minimal AHI (0.3/hr); oxygenation normal (avg SpO? 96%, porter 89%, <88% for 0.1 min); soft snoring; average sleeping pulse 62 bpm with transient, asymptomatic peak HR 205 bpm; arousal index 12/hr; PLMS index 31/hr (PLMS arousal index 3.5/hr); MSLT canceled due to insufficient sleep time. Mother expressed concern over the cancellation of the MSLT following the 03/09/2025 PSG and was unclear on the reason. Patient noted earlier sleep onset during a prior study while taking his medication, but had held all such medications for 2?3 weeks before the recent PSG. Both are concerned about ongoing symptoms, including difficulty initiating sleep (bedtime ~22:00, sleep onset 01:00?02:00), waking around 08:30?09:30, and frequent awakenings every 1?2 hours. Labs ordered at the prior visit have not yet been completed. He also endorses symptoms of restless leg- has episodes of urge to move his legs. His father was recently diagnosed with hyperferritinemia. 12/27/2024, previous HPI: Pt denies any significant interval medical history changes. Interval 10/11/2024 In-lab PSG results did not show any evidence for obstructive sleep apnea, sleep disordered breathing. There were some periodic limb movement of sleep, however few were associated with arousals thus their clinical sig nificance is uncertain.. Sleep latency was 101 minutes, REM latency was 72 minutes, AHI 0 per hour, O2 porter 93% with average SpO2 96%, periodic limb movement of sleep 15 per hour, PLMS arousal index 1.6 per hour He states that he He is sees an ADHD dance coach. He is now taking Bupropion in the am. He was advised to stop trazodone as it would help him fall asleep at night but then would be late fore work as he could not wake up in the am. Recently started mirtazapine 7.5mg qhs. Goes to bed at 9-9:30pm, then shuts off his phone/TV, may read book (an actual book) until about 10:30pm. He is supposed to be up at 8am, but needs multiple alarms to wake up in the am. States he is in a zombie state for the 1st 3 hours of the day. Takes coffee in the am- twice a week. May use marijuana socially every 3 months. Otherwise denies use of illicit substances. Using blue-light filters on every device throughout. He notes his grandmother, who he lives with, keeps the house at 85 degrees all day and night long. Starting going back to the gym about 1-2 months- cardio and leg/core strength training. Denies any episodes of weakness a/w strong emotion. His sleep issues started around 8-9th grade. 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 He may now- doze off in the evening when watching TV- for 30-120 minutes. He states he has had 2 dream episodes in the past year- believes both were during a daytime nap. His father sometimes struggles with sleep- but not to the degree that the patient does. He is having 2-3 migraine days per week- typically more mild to moderate, but can be more severe. Migraine community associated with photophobia and phonophobia. His father and sister have migraine 06/23/24, previous HPI: Since the last visit, pt underwent In-lab PSG which did not show any evidence of sleep apnea or sleep disordered breathing and a small number of PLMS- however pt only slept ~ 2hrs during the study. PSG: AHI 0/hr and REM AHI n/a w/ O2 porter 94% w/ SpO2 < 88% x's 0 min, and average SpO2 97%; Periodic limb movement of sleep (PLMS) index: 6.6/hr; PLMS arousal index: 3.7/hr. Pt was offered to repeat a sleep study w/ premedication but he did not feel that would be accurate. He can still be tired. Prone to wake up 3-4 times a night- takes abouyt 10 minutes to fall back to sleep. His legs can feel restless at night. He is prone to tapping. Pt states his Trazodone was increased but he cannot take it as it makes him too sleepy during the day. He is not sure if he has a h/o anemia- but does have a h/o malnutrition as a child as he was not eating. [facility] Medical History (Updated 04/24/25 @ 11:43 by HALLIE Canales) Obesity (BMI 30.0-34.9) Family History Father Migraines HTN (hypertension) Mother Migraines Rheumatoid arthritis Sister Acid reflux Social History Household Members: Other Household Members Other:: Grandmother Housing: House Alcohol intake: current Comment: rarely Patient Tobacco Use Status: Never used Tobacco Physical Exam Vital Signs: Last Vital Signs Pulse 74 04/24/25 09:30 BP 116/86 04/24/25 09:30 Pulse Ox 98 04/24/25 09:30 Oxygen Delivery Method Room Air 04/24/25 09:30 BMI result Body Mass Index 29.6 Const General: no acute distress and tired appearing Orientation/consciousness: patient oriented x3 Resp Effort & Inspection: normal respiratory effort and able to speak in complete sentences Neuro General: patient oriented x3 Psych Mental Status: mental status grossly normal Speech and movement: Clear speech present Attitude: cooperative Assessment & Plan Assessment & Plan (1) Difficulty sleeping: Comment: Differential diagnosis includes idiopathic hypersomnia, narcolepsy type 2, delayed phase circadian rhythm disorder Code(s): G47.9 - Sleep disorder, unspecified Category: Medical (2) Daytime sleepiness: Code(s): R40.0 - Somnolence Category: Medical (3) Snoring: Code(s): R06.83 - Snoring Category: Medical (4) Hypersomnia, unspecified: Code(s): G47.10 - Hypersomnia, unspecified Category: Medical (5) Periodic limb movements of sleep: Code(s): G47.61 - Periodic limb movement disorder Category: Medical (6) Memory deficit: Code(s): R41.3 - Other amnesia Category: Medical (7) Headache: Code(s): R51.9 - Headache, unspecified Category: Medical Qualifiers: Headache type: other headache syndrome Qualified Code(s): G44.89 - Other headache syndrome Plan 10/11/2024, In-lab PSG- no evidence for sleep apnea or sleep disordered breathing. Mild periodic limb movements of sleep, of uncertain clinical significance. 03/09/2025 in-lab PSG: No evidence for sleep apnea, there was mild signs of periodic limb movement of sleep. Unfortunately patient did not sleep long enough during the baseline portion of the PSG to be able to complete the MSLT portion. * Discussed rationalization for why the MSLT portion of the sleep study was not completed, as the patient had not slept long enough to allow for an accurate MSLT study to be completed. Patient again advised to have labs for common etiologies of RLS/Periodic limb movement of sleep (PLMS) and fatigue. Discussed simple strategies to optimize sleep hygiene. * Such as maintaining a regular wake up time, waiting until tired before going to bed. * Suggested patient generally go to bed later, especially if he does not need to wake up until 08:00. * Previously discussed strategies to reduce sleeping temperature, as his grandmother tends to keep the heat elevated at night. As patient continues to have significant sleep difficulties, notable sleep ine rtia, possibly episodes of daytime REM sleep during naps, patient is advised to undergo actigraphy sleep study x's 2 weeks- as [facility] [place], we will request through sleep Medicine Services or [facility] sleep Medicine. Continue migraine plan as below: For migraine headache: Continue Riboflavin and Magnesium for headache. Trial Sumatriptan 100mg tab, 1/2 - 1 tab (50-100mg) at onset of headache, may repeat in 2 hours. Max of 2 tabs (200mg) per 24 hours. May take sumatriptan with OTC Tylenol 650-1,000mg every 4-6 hours, Ibuprofen (liquid gels) 600mg every 6 hours, or Naproxen (liquid gels) 440mg q 12 hrs prn. Potential adverse effects of triptans, include but are not limited to nausea, fatigue, chest tightness/tingling (usually passes within a few minutes), medicat ion overuse headaches. Will follow-up upon review of above and patient to follow-up in clinic in 6 months or sooner prn. Orders: Orders Folate Today E66.811 - Obesity, class 1, G25.81 - Restless legs syndrome, G47.10 - Hypersomnia, unspecified, R53.83 - Other fatigue Other Ref Test - Misc Today G47.10 - Hypersomnia, unspecified Vitamin B12 Today E66.811 - Obesity, class 1, G25.81 - Restless legs syndrome, G47.10 - Hypersomnia, unspecified, R53.83 - Other fatigue Homocysteine Today E66.811 - Obesity, class 1, G25.81 - Restless legs syndrome, G47.10 - Hypersomnia, unspecified, R53.83 - Other fatigue Methylmalonic Acid Today E66.811 - Obesity, class 1, G25.81 - Restless legs syndrome, G47.10 - Hypersomnia, unspecified, R53.83 - Other fatigue Erythrocyte Sedimentation Rate Today E66.811 - Obesity, class 1, G25.81 - Restless legs syndrome, G47.10 - Hypersomnia, unspecified, R53.83 - Other fatigue C Reactive Protein Today E66.811 - Obesity, class 1, G25.81 - Restless legs syndrome, G47.10 - Hypersomnia, unspecified, R53.83 - Other fatigue Coding Level of Care Code Est Pt Level 4 (29082) Diagnoses Difficulty sleeping G47.9 Daytime sleepiness R40.0 Snoring R06.83 Hypersomnia, unspecified G47.10 Periodic limb movements of sleep G47.61 Memory deficit R41.3 Other headache syndrome G44.89 Headache type: other headache syndrome
--- OUTSIDE RECORDS SUMMARY | 2025-04-24 10:06 | XMS_ITS | Encounter Summary ---
Author Organization [facility] Address [address] [place] [address] Phone Care Team Providers Care Vp Analytics Name Role Phone Андрей Vasquez MD Primary Care Provider Jermaine fraire Encounter Details Date Type Department Care Team (Late st Contact Info) Description 10/31/2010 Documentation [facility] [address] [place], [place] [phone] Family Medicine, Physician [address] [place] [address] Social History Tobacco Use Types Packs/Day Years [...] on filedocumented in this encounter Care Teams Vp Analytics Relationship Specialty Start Date End Date Андрей Vasquez MD PCP - General 04/23/17 03/04/23 documented as of this encounter
--- OUTSIDE RECORDS SUMMARY | 2025-04-24 10:06 | XMS_ITS | Patient Health Record ---
Author Organization [facility] [employer] Address [address] [place] [address] Care Team Providers Care Staff Counsel Name Role Phone CHRISTELLEEmma ABBEY Primary Care Provider Heber Mclaughlin Unavailable [phone] Allergies No Known Allergies Reason For Referral Reason Evaluation and manag ement Diagnosis 1 Insomnia, unspecifie d (G47.00) Referral Organization [facility] Referring Provider First Name ABBEY Referring Provider Last Name [facility] Referring Provider Speciality Internal edicine Referred Provider Specialty Sleep Medici ne General Notes Referral sent to [facility] - Office will call patient for scheduling.Rachel Latraya 07/20/2024 09:09:01 AM > Referral Priority Routine Reason Evaluation and manag ement - EEG Diagnosis 1 Complaints of memory disturbance (R41.3) Referral Organization [facility] Referring Provider First Name ABBEY Referring Provider Last Name [facility] Referring Provider Speciality Internal edicine Referred Provider Specialty Neurology General Notes Referral sent to [facility] - Office will call patient for scheduling.Rachel Latraya 07/24/2024 10:32:56 AM > Referral Priority Routine Reason Evaluation and manag ement - sleep study Diagnosis 1 Insomnia, unspecifie d (G47.00) Referral Organization [facility] Referring Provider First Name ABBEY Referring Provider Last Name [facility] Referring Provider Speciality Internal edicine Referred Provider Specialty Neurology General Notes Referral sent to [facility] - Office will call patient for scheduling.Rachel Latraya 07/24/2024 10:33:45 AM > Referral Priority Routine Reason Evaluation and manag ement - in lab sleep study Diagnosis 1 Complaints of memory disturbance (R41.3) Diagnosis 2 Insomnia, unspecifie d (G47.00) Referral Organization [facility] Referring Provider First Name POTTER Referring Provider Last Name [facility] Referring Provider Speciality Internal edicine Referred Provider Specialty Sleep Medici ne General Notes Referral sent to [facility] ([address] [place] [address], [address], [place] [address], ) - Office will call patient for scheduling., Saundra Ramos 07/28/2024 02:09:38 PM > Referral Priority Routine Reason in lab sleep study evaluate and management Diagnosis 1 Complaints of memory disturbance (R41.3) Diagnosis 2 Amnesia (R41.3) Diagnosis 3 Insomnia, unspecifie d (G47.00) Referral Organization [facility] Referring Provider First Name ABBEY Referring Provider Last Name CHRISTELLE Referring Provider Speciality Internal edicine Referred Provider Specialty Neurology Referral Priority Routine Medications Medication SIG (Take, Route, Frequency, Duration) Notes Start Date End Date Status Mirtazapine 15 MG TAKE 1 TABLET BY YESI TH EVERY DAY AT BEDTIME FOR 30 DAYS; Duration: 90 Active busPIRone HCl 10 MG TAKE 1 TABLET BY YESI TH TWICE A DAY; Duration: 90 days Active buPROPion HCl ER (XL) 300 MG 1 tablet in the morning Orally Once a day; Duration: 90 days Active hydrOXYzine HCl 25 MG 1 tablet Orally ev narendra 8 hrs; Duration: 30 days Active traZODone HCl 50 MG TAKE 1 AND 1/2 TABLE TS BY MOUTH EVERY DAY; Duration: 90 days Active Problems Problem Type SNOMED Code ICD Code Onset Dates Problem Status W/U Status Risk Notes Problem Obesity due to excess calories (756069380) Other obesity due to excess calories (E66.09) Active confirmed Problem Hyperlipidemia (38530362) Hyperlipidemia, unspecified (E78.5) Active confirmed Problem Mild recurrent major depression (12627320) Major depressive disorder, recurrent, mild (F33.0) Active confirmed Problem Generalized anxiety disorder (19332655) Generalized anxiety disorder (F41.1) Active confirmed Problem Insomnia (744482153) Insomnia, unspecified (G47.00) Active confirmed Problem Amnesia (30728056) Other amnesia (R41.3) Active confirmed Problem Amnesia (61899279) Complaints of memory disturbance (R41.3) Active confirmed Problem Amnesia (60007784) Amnesia (R41.3) Active confi rmed Vital Signs Heart Rate 84 /min 11/02/2024 Temperature 97.8 degrees Fahrenheit 11/02/2024 Blood pressure diastolic 84 mm Hg 11/02/2024 Oximetry 99 % 11/02/2024 Height 5'7'' in 11/02/2024 Blood pressure systolic 130 mm Hg 11/02/2024 Weight 197.0 lbs 11/02/2024 BMI 30.85 kg/m2 11/02/2024 Encounters Encounter Location Date Provider Diagnosis [address] [place] [address] 07/19/2024 ABBEY MACKENZIE Generalized anxiety disorder F41.1 ; Major depressive disorder, recurrent, mild F33.0 ; Insomnia, unspecified G47.00 and Complaints of memory disturbance R41.[address] [place] [address] 11/02/2024 ABBEY MACKENZIE Generalized anxiety disorder F41.1 ; Insomnia, unspecified G47.00 ; Major depressive disorder, recurrent, mild F33.0 ; Complaints of memory disturbance R41.3 ; Other obesity due to excess calories E66.09 and Dietary counseling and surveillance Z71.[address] [place] [address] 04/25/[address] [place] [address] 06/12/[address] [place] [address] 07/19/[address] [place] [address] 07/19/[address] [place] [address] 07/28/[address] [place] [address] 08/16/[address] [place] [address] 08/24/[address] [place] [address] 11/02/[address] [place] [address] 11/02/2024 POTTER GUL Hyperlipidemia, unspecified E78.5 ; Other amnesia R41.3 and Complaints of memory disturbance R41.[address] [place] [address] 04/20/2025 POTTER GU Hyperlipidemia, unspecified E78.5 and Other amnesia R41.[address] [place] [address] 04/19/[address] [place] [address] 04/20/[address] [place] [address] 04/20/2025 POTTER AVRIL Assessments Encounter Date Diagnosis (ICD Code) Assessment [...] services. 11/02/2024 Hyperlipidemia, unspecified (ICD-10 - E78.5) 04/20/2025 Hyperlipidemia, unspecified (ICD-10 - E78.5) 04/20/2025 Other amnesia (ICD-10 - R41.3) 11/02/2024 Other amnesia (ICD-10 - R41.3) 07/19/2024 [...] to excess calories (ICD-10 - E66.09) Mr Rodgers is a 24-year-old gentleman with [...] Name Order Date Electroencephalography (EEG) 07/19/2024 Vitamin [id number] 11/02/2024 [id number] 11/02/2024 Ferritin-[id number] 04/20/2025 Vitamin D, [id number] 11/02/2024 Lipid Panel-[id number] 11/02/2024 Comp. Metabolic Panel [id number] 2024 Homocysteine, Urine 11/02/2024 Future Test Test Name Order Date 25OH VITAMIN D 08/13/2023 COMPREHENSIVE METABOLIC PANEL 08/13/2023 HOMOCYSTEINE, URINE 08/13/2023 LIPID PANEL 08/13/2023 METHYLMALONIC ACID, URINE 08/13/2023 TSH 08/13/2023 VITAMIN B12 08/13/2023 Next Appt Details Provider Name:Hernandez Joshi 04/26/2025 11:30:00 AM, [address] [address], [place], [address], Insurance Providers Payer Name Payer Address Payer Phone Subscriber Number Group Number Insured Name Patient Relationship to Insured Coverage Start Date Coverage End Date [facility] [address] [place] [address] [phone] [id number] Garrett Rodgers Self - patient is the insured Medical (General) History Medical History History ICD Code insomnia Anxiety disorder see Ms Maloney ADHD Surgical History Surgery Date(Month/Year) fracture left leg sec to sports injury
== END 2025-04-24 10:36 | disposition home or self-care (01) ==
LOC: HO.HSMS 09:28
PROVIDERS: PCP Pediatrics; Visit Provider Nurse Practitioner Family
DX: G47.9 Sleep disorder, unspecified (principal); R40.0 Somnolence; R06.83 Snoring; G47.10 Hypersomnia, unspecified; G47.61 Periodic limb movement disorder; R41.3 Other amnesia; G44.89 Other headache syndrome
CPT/HCPCS: 99214